=== PATIENT | female | born 1955 | race Caucasian/White ===

== ENCOUNTER 2017-06-25 05:34 | Emergency (ER) | payer OTHER ==
[2017-06-25 06:01] VITALS: TEMP 97; BMI 47.8
--- NOTE | 2017-06-25 06:22 | PDOC ---
*Physical Exam - Vital Signs Last Vital Signs Temp Pulse Resp BP Pulse Ox 97.0 F L 90 20 146/97 98 06/25/17 05:48 06/25/17 05:48 06/25/17 05:48 06/25/17 05:48 06/25/17 05:48 ED Treatment Course - LABORATORY CBC & Chemistry Diagram: 06/25/17 11:31 06/25/17 07:04 *DC/Admit/Observation/Transfer Diagnosis at time of Disposition: Vaginal bleeding, abnormal - Discharge Dispostion Disposition: HOME Condition at time of disposition: Good - Referrals Referrals: Donna Byrne MD [Staff Physician] - Andre Smalls MD [Staff Physician] - - Patient Instructions Printed Discharge Instructions: DI for Vaginal Bleeding During Additional Instructions: Please follow up with referred furnace combustion analyst and primary care physician. Please continue to observe for worsening symptoms, such as abdominal distention , increased vaginal bleeding, change in bowel pattern, fever, chills or weakness. If any the symptoms are noticed please return to the ED immediately - Post Discharge Activity
--- NOTE | 2017-06-25 06:35 | PDOC ---
History of Present Illness - General Chief Complaint: Vaginal Bleeding Stated Complaint: VAGINAL/RECTAL BLEEDING Time Seen by Provider: 06/25/17 06:17 - History of Present Illness Initial Comments: 06/25/17 06:25 CHIEF COMPLAINT: vaginal/rectal bleeding HISTORY OF PRESENT ILLNESS: 61 yo F with hx of seizure disorder (on Keppra) presents to ED with vaginal and rectal bleeding since last night. Patient reports that she had "a little bleeding last night" but when she woke up this morning she felt some cramping and discomfort and saw that she was bleeding much more and passing clots. She states she is certain that she was bleeding from both her rectum and her vagina. She denies any fever, chills, nausea, vomiting, lightheadedness, dizziness, palpitations, or shortness of breaht. Her denies any abdominal pain, "just the little cramping like a period from when I used to have my period." She reports that her last LMP was about 20 years ago. She denies taking any anticoagulants or antiplatelets, "just aspirin sometimes." She denies any prolonged use of NSAIDS. PAST MEDICAL HISTORY: Denies past medical history FAMILY HISTORY: Denies SOCIAL HISTORY: Denies tobacco, alcohol, illicit drug use. SURGICAL HISTORY: Denies ALLERGIES: No known drug allergies REVIEW OF SYSTEMS General/Constitutional: Denies fever or chills. Denies weakness, weight change. HEENT: Denies change in vision. Denies ear pain or discharge. Denies sore throat. Cardiovascular: Denies chest pain or shortness of breath. Respiratory: Denies cough, wheezing, or hemoptysis. Gastrointestinal: Denies nausea, vomiting, diarrhea or constipation. Denies rectal bleeding. Genitourinary: Denies dysuria, frequency, or change in urination. Musculoskeletal: Denies joint or muscle swelling or pain. Denies neck or back pain. Skin and breasts: Denies rash or easy bruising. Neurologic: Denies headache, vertigo, loss of consciousness, or loss of sensation. PHYSICAL EXAM General Appearance: Well-appearing, appropriately dressed. No apparent distress. HEENT: EOMI, PERRLA, normal ENT inspection, normal voice, TMs normal, pharynx normal. No conjunctival pallor. No photophobia, scleral icterus. Neck: Supple. Trachea midline. No tenderness, rigidity, carotid bruit, stridor , lymphadenopathy, or thyromegaly. Respiratory/Chest: Lungs CTAB. No shortness of breath, chest tenderness, respiratory distress, accessory muscle use. No crackles, rales, rhonchi, stridor , wheezing, dullness Cardiovascular: RRR. S1, S2. No JVD, murmur, bradycardia, tachycardia. Vascular Pulses: Dorsalis-Pedis (R): 2+, Dorsalis-Pedis (L): 2+ Gastrointestinal/Abdominal: +blood on rectal exam. Normal bowel sounds. Abdomen soft, non-distended. No tenderness or rebound tenderness. No organomegaly, pulsatile mass, guarding, hernia, hepatomegaly, splenomegaly. Lymphatic: No adenopathy, tenderness. Musculoskeletal/Extremities: Normal inspection. FROM of all extremities, normal capillary refill. Pelvis Stable. No CVA tenderness. No tenderness to extremities, pedal edema, swelling, erythema or deformity. Integumentary: Appropriate color, dry, warm. No cyanosis, erythema, jaundice or rash Neurologic: scallop cutter machine II-XII intact. Fully oriented, alert. Appropriate mood/affect. Motor strength 5/5. No appreciable EOM palsy, facial droop or sensory deficit. Past History - Past Medical History Allergies/Adverse Reactions: Allergies Allergy/AdvReac Type Severity Reaction Status Date / Time No Known Allergies Allergy Verified 06/25/17 05:48 - Suicide/Smoking/Psychosocial Hx Smoking History: Never smoked Have you smoked in the past 12 months: No Information on smoking cessation initiated: No Hx Alcohol Use: No Drug/Substance Use Hx: No *Physical Exam - Vital Signs Last Vital Signs Temp Pulse Resp BP Pulse Ox 97.0 F L 90 20 146/97 98 06/25/17 05:48 06/25/17 05:48 06/25/17 05:48 06/25/17 05:48 06/25/17 05:48 ED Treatment Course - RADIOLOGY Radiology Studies Ordered: Category Date Time Status ABDOMEN & PELVIS CT WITH CONTR [CT] Stat CT Scan 06/25/17 06:25 Ordered TRANSVAGINAL ULTRASOUND US [US] Stat Ultrasound 06/25/17 06:25 Ordered Medical Decision Making - Medical Decision Making 06/25/17 06:35 61 yo F with hx of seizure disorder (on Keppra) presents to ED with vaginal and rectal bleeding since last night. -EKG -CBC, CMP, PT/PTT/INR, T&S -guaiac -TVUS -Abdominal CT guaiac grossly positive. patient with visible vaginal bleeding passing clots Case discussed in detail with oncoming emergency provider including history, physical exam and ancillary studies. In brief, this patient is being seen in the ED for a chief complaint of: vaginal/rectal bleeding I have reviewed the following results: none Pending results: labs Please call the PCP: Plan for disposition as follows: admit Oncoming RAMILA Alex has assumed care for the patient and will complete the evaluation and treatment.
[2017-06-25] MEDS ORDERED: HEMOQUE TEST 1 EACH EACH ONE (07:09)
[2017-06-25 07:32] LABS: BASO % 0.8 % (0-2.0); EOS % 3.7 % (0-4.5); HEMATOCRIT 38.4 % (32.4-45.2); HEMOGLOBIN 12.5 GM/dL (10.7-15.3); LYMPH % 26.2 % (8-40); MCH 28.9 pg (25.7-33.7); MCHC 32.6 g/dl (32.0-36.0); MEAN CELL VOLUME 88.5 fl (80-96); MEAN PLT VOLUME 8.2 fl (7.5-11.1); MONO % 6.8 % (3.8-10.2); NEUT % 62.5 % (42.8-82.8); PLATELET COUNT 298 K/MM3 (134-434); RBC 4.34 M/mm3 (3.60-5.2); RDW 14.1 % (11.6-15.6); WHITE BLOOD COUNT 9.3 K/mm3 (4.0-10.0)
[2017-06-25 07:45] LABS: INR 1.01 (0.82-1.09); PROTHROMBIN TIME (PATIENT) 11.4 SEC (9.98-11.88)
[2017-06-25 07:48] LABS: ACTIVATED PTT 32.4 SECONDS (26.9-34.4)
[2017-06-25 07:52] LABS: ALBUMIN 3.6 g/dl (3.4-5.0); ANION GAP 8 (8-16); BILIRUBIN,TOTAL 0.3 mg/dL (0.2-1.0); BLOOD UREA NITROGEN 11 mg/dL (7-18); CHLORIDE 101 mmol/L (98-107); CO2 28 mmol/L (21-32); CREATININE 0.7 mg/dL (0.55-1.02); GLUCOSE,RANDOM 138 mg/dL (74-106); SGPT/ALT 15 U/L (12-78); SODIUM 137 mmol/L (136-145); TOT PROT 7.4 g/dl (6.4-8.2)
[2017-06-25 07:55] LABS: ALK PHOS 135 U/L (45-117)
--- NOTE | 2017-06-25 08:17 | PDOC ---
*Physical Exam - Vital Signs Last Vital Signs Temp Pulse Resp BP Pulse Ox 97.0 F L 90 20 146/97 98 06/25/17 05:48 06/25/17 05:48 06/25/17 05:48 06/25/17 05:48 06/25/17 05:48 ED Treatment Course - LABORATORY CBC & Chemistry Diagram: 06/25/17 11:31 06/25/17 07:04 - ADDITIONAL ORDERS Additional order review: Laboratory Results 06/25/17 06/25/17 06/25/17 07:04 06:59 06:18 PT with INR 11.40 INR 1.01 PTT (Actin FS) 32.4 Stool Occult Blood Positive Blood Type Cancelled Antibody Screen Cancelled 06/25/17 06:59 RBC 4.34 MCV 88.5 MCHC 32.6 RDW 14.1 MPV 8.2 Neutrophils % 62.5 Lymphocytes % 26.2 Monocytes % 6.8 Eosinophils % 3.7 Basophils % 0.8 Medical Decision Making - Medical Decision Making 06/25/17 08:16 Patient received in sign out from COLBY Berg. Patient with complaints of vaginal bleeding along with rectal bleeding on physical exam. Patient ordered for lab work, CT of the abdomen, and ultrasound of the pelvis. 06/25/17 08:59 Laboratory Tests 06/25/17 06/25/17 06:59 07:04 WBC 9.3 Hgb 12.5 Hct 38.4 Plt Count 298 Neutrophils % 62.5 Sodium 137 Potassium 3.9 Chloride 101 Carbon Dioxide 28 Anion Gap 8 BUN 11 Creatinine 0.7 Random Glucose 138 H Calcium 8.0 L AST 17 ALT 15 Alkaline Phosphatase 135 H Creatine Kinase 87 Troponin I < 0.02 06/25/17 09:00 Pt went to u/s. Pt comfortable presently with family accompanying her 06/25/17 11:05 Ultrasound shows an enlarged elongated uterus with a coarse echotexture. No discrete masses identified. Very poor visualization of the endometrial stripe, as described above without gross thickening. Awaiting CT. Patient ordered for repeat CBC 06/25/17 12:11 Laboratory Tests 06/25/17 06/25/17 06:59 11:31 WBC 10.3 H Hgb 12.5 12.0 Hct 38.4 36.7 MPV 6.3 L D 06/25/17 13:34 CT of the abdomen shows suspected right lower lobe hepatic hemangioma. Follow- up studies recommended. Hypodense endometrial cavity possibly representing blood or thickened endometrium. Clinical correlation a follow-up was recommended. Patient will be given a referral to VOCAL TEACHER, along with a primary care physician and vice squad police officer 06/25/17 13:35 Patient states bleeding has subsided and is only spotting dark red blood when wiping after urination and has no abdominal pain presently. *DC/Admit/Observation/Transfer Diagnosis at time of Disposition: Vaginal bleeding, abnormal - Discharge Dispostion Disposition: HOME Condition at time of disposition: Good - Referrals Referrals: Donna Byrne MD [Staff Physician] - Andre Smalls MD [Staff Physician] - - Patient Instructions Printed Discharge Instructions: DI for Vaginal Bleeding During Additional Instructions: Please follow up with referred game tester and primary care physician. Please continue to observe for worsening symptoms, such as abdominal distention , increased vaginal bleeding, change in bowel pattern, fever, chills or weakness. If any the symptoms are noticed please return to the ED immediately - Post Discharge Activity
[2017-06-25 08:19] LABS: POTASSIUM 3.9 mmol/L (3.5-5.1); SGOT/AST 17 U/L (15-37)
[2017-06-25 11:50] LABS: HEMATOCRIT 36.7 % (32.4-45.2); MCH 28.8 pg (25.7-33.7); MCHC 32.8 g/dl (32.0-36.0); MEAN CELL VOLUME 87.7 fl (80-96); MEAN PLT VOLUME 6.3 fl (7.5-11.1); PLATELET COUNT 286 K/MM3 (134-434); RBC 4.19 M/mm3 (3.60-5.2); RDW 13.6 % (11.6-15.6); WHITE BLOOD COUNT 10.3 K/mm3 (4.0-10.0)
[2017-06-25 16:44] VITALS: BP 140/80; PULSE 86
--- NOTE | 2017-06-29 11:48 | EKG ---
Test Reason : Blood Pressure : / mmHG Vent. Rate : 077 BPM Atrial Rate : 077 BPM P-R Int : 160 ms QRS Dur : 080 ms QT Int : 390 ms P-R-T Axes : 024 035 029 degrees QTc Int : 441 ms NORMAL SINUS RHYTHM LOW VOLTAGE QRS BORDERLINE ECG WHEN COMPARED WITH ECG OF 29-OCT-2004 22:37, NO SIGNIFICANT CHANGE WAS FOUND Confirmed by MD Hernández Daniel ([id number]) on 06/29/2017 11:47:56 AM Referred By: Confirmed By:Lyndon Hernández MD
== END 2017-06-25 14:30 | disposition home or self-care (01) ==
LOC: JER 05:34
DX: N93.9 Abnormal uterine and vaginal bleeding, unspecified (principal); G40.909 Epilepsy, unspecified, not intractable, without status epilepticus
CPT/HCPCS: 36415; 74177-TC; 76830-TC; 80053; 82272; 82550; 84484; 85025; 85027; 85610; 85730; 93005; 93010; 99284-25

== ENCOUNTER 2018-03-13 17:17 | Emergency (ER) | payer OTHER ==
[2018-03-13 17:21] VITALS: BMI 42.8
--- NOTE | 2018-03-13 17:46 | PDOC ---
History of Present Illness - General Chief Complaint: Vaginal Bleeding Stated Complaint: VAGINAL BLEEDING Time Seen by Provider: 03/13/18 17:43 History Source: Patient - History of Present Illness Initial Comments: 03/13/18 17:48 The patient is a 62 year old female with a PMH of seizure disorder (on Carbamezapine and Leviteracam) presents c/o vaginal bleeding. States she went to the bathroom this evening and noticed the blood in her underwear. Denies any associated abdominal pain. Notes a 6 month h/o weight loss. H/o vaginal bleeding intermittently for the past 1 year. Denies any associated chest pain, shortness of breath, abdominal cramping, dysuria. The patient denies fevers/chills, nausea/vomiting, diarrhea/constipation. NKDA Surgical: none reported Social: denies toxic habits PMD: None, previously referred to Dr. Smalls As per EMR, patient last evaluated in 06/2017 for vaginal and rectal bleeding at which time TVUS showed thickened endometrium and R liver hemangioma. Patient states she was unable to f/u with a landscaping and groundskeeping laborer doctor due to cost and insurance issues. Past History - Past Medical History Allergies/Adverse Reactions: Allergies Allergy/AdvReac Type Severity Reaction Status Date / Time No Known Allergies Allergy Verified 03/13/18 17:20 Home Medications: Ambulatory Orders Levetiracetam [Keppra] 06/25/17 COPD: No Seizures: Yes - Suicide/Smoking/Psychosocial Hx Smoking History: Never smoked Have you smoked in the past 12 months: No Hx Alcohol Use: No Drug/Substance Use Hx: No Review of Systems - Review of Systems Constitutional: No: Chills, Fever Respiratory: No: Cough, Shortness of Breath Cardiac (ROS): No: Chest Pain, Lightheadedness, Palpitations, Syncope ABD/GI: No: Constipated, Diarrhea, Nausea, Vomiting *Physical Exam - Vital Signs Last Vital Signs Temp Pulse Resp BP Pulse Ox 98 F 102 H 20 176/78 H 99 03/13/18 17:18 03/13/18 17:18 03/13/18 17:18 03/13/18 17:18 03/13/18 17:18 - Physical Exam General Appearance: Yes: Nourished, Obese HEENT: positive: Normal Voice, Hearing Grossly Normal Neck: positive: Trachea midline, Supple Respiratory/Chest: positive: Lungs Clear, Normal Breath Sounds Cardiovascular: positive: S1, S2. negative: JVD, Murmur Female Pelvic Exam: positive: cervical os closed, vaginal bleeding, other (no CMT, no adnexal tenderness) Gastrointestinal/Abdominal: positive: Normal Bowel Sounds, Soft Extremity: positive: Normal Capillary Refill, Normal Inspection Integumentary: positive: Normal Color, Dry, Warm ED Treatment Course - LABORATORY CBC & Chemistry Diagram: 03/13/18 18:05 03/13/18 18:05 Medical Decision Making - Medical Decision Making 03/13/18 18:28 62 year old female with vaginal bleeding. H/o 40 lb weight loss over the last 2 months. Hypertensive (176/82) and tachycardic (102) at presentation. Pelvic exam shows vaginal bleed with tissue growth @ 7 o'clock position. Frontal diagnosis: ovarian CA, uterine CA, fibroids. Will obtain basic labs, T&S, TVUS. Reassess. 03/13/18 19:09 Leukocytosis 13.9 03/13/18 19:30 CMP unremarkable. Patient @ TVUS 03/13/18 21:22 FOBT negative 03/13/18 22:21 Tachycardia, HTN resolved TVUS shows fibroids - likely source of patient bleeding. As patient is hemodynamically stable, will discharge with referral to OB-Lighting Engineer and primary care. Strong counseling on the importance of follow-up to r/o malignancy in addition to possible treatment for fibroids. I discussed the physical exam findings, ancillary test results and final diagnoses with the patient. I answered all of the patient's questions. The patient was satisfied with the care received and felt comfortable with the discharge plan and treatment plan. The patient will return to the Emergency Department with any new, persistent or worsening symptoms. *DC/Admit/Observation/Transfer Diagnosis at time of Disposition: Fibroids, Vaginal bleeding - Discharge Dispostion Disposition: HOME Condition at time of disposition: Good Decision to Admit order: No - Referrals Referrals: Gracy Marina DO [Staff Physician] - Zahraa Kline MD [Staff Physician] - Lili Winter MD [Staff Physician] - Charlie Butler MD [Staff Physician] - Rhiannon Morgan MD [Staff Physician] - - Patient Instructions Additional Instructions: You were evaluated today for your vaginal bleeding. An ultrasound of your uterus shows fibroids- these are possibly the source of your bleeding. At this time you are safe for discharge home. Please see a corporate traffic manager (we have provided 3 referrals for you to choose a corporate traffic manager of your choice). We have given you a copy of your ultrasound, please take this to your appointment. Your care is not complete until you follow-up with a corporate traffic manager. We have also provided a referral to a primary care doctor, Dr. Luke Guerra or Dr. Morgan. Please make an appointment to establish primary care. Return to the Emergency Department for any new/worsening/concerning symptoms. - Post Discharge Activity
[2018-03-13 18:17] LABS: BASO % 0.3 % (0-2.0); EOS % 2.3 % (0-4.5); HEMATOCRIT 34.9 % (32.4-45.2); HEMOGLOBIN 11.3 GM/dL (10.7-15.3); LYMPH % 14.6 % (8-40); MCH 27.5 pg (25.7-33.7); MCHC 32.5 g/dl (32.0-36.0); MEAN CELL VOLUME 84.8 fl (80-96); MEAN PLT VOLUME 6.9 fl (7.5-11.1); MONO % 5.4 % (3.8-10.2); NEUT % 77.4 % (42.8-82.8); PLATELET COUNT 467 K/MM3 (134-434); RBC 4.12 M/mm3 (3.60-5.2); RDW 15.7 % (11.6-15.6); WHITE BLOOD COUNT 13.9 K/mm3 (4.0-10.0)
--- NOTE | 2018-03-13 18:21 | PDOC ---
Attending Attestation - Resident Resident Name: QiuanaNelly - ED Attending Attestation I have performed the following: I have examined & evaluated the patient, The case was reviewed & discussed with the resident, I agree w/resident's findings & plan - HPI HPI: 03/13/18 18:22 62 YOF with sz history, presenting with intermittent VB x 1 year. also endorses weight loss, decreased appetite x several months. no AP. Denies any associated chest pain, shortness of breath, abdominal cramping, n/v/d, dysuria. As per EMR, patient last evaluated in 06/2017 for vaginal and rectal bleeding at which time TVUS showed thickened endometrium and R liver hemangioma. Patient states she was unable to f/u with a GI doctor due to cost and insurance issues. 03/13/18 22:03 - Physicial Exam PE: 03/13/18 22:03 NAD, well appearing, PERRL, EOMI, MMM, nl conjunctiva, anicteric; neck supple. lungs clear, RRR, abdomen soft nontender. Obese abdomen. Pelvic exam performed by resident. [place] x4, no focal neuro deficits. No peripheral edema. normal color for ethnicity, WW. - Medical Decision Making 03/13/18 18:21 62 year old female with a PMH of seizure disorder (on Carbamezapine and Leviteracam) presents c/o vaginal bleeding. vitals with mild hypertension and tachy. rechecked and normal. Prior notes reviewed, including admissions, discharges and consultations. laboratory results and imaging reviewed, basic labs and lytes wnl, notable for nonspecific leukocytosis. defer UA, no infection. guaiac neg, not GIB. ED course: no acute events, remained stable and well appearing. TVUS: fibroid uterus, nonvisualized endometrial stripe urged close f/u java development manager for DUB/fibroids and malignancy workup. PCP referrals given. no other sx/AP or systemic findings to warrant further imaging/testing at this time, with followup provided.. Dispo: Pt to be discharged in stable condition. Patient and family made aware of impression and plan, return precautions discussed (including but not limited to worsening pain or symptoms), fevers, or signs of infection, chest pain, respiratory distress, inability to tolerate oral intake, dehydration, syncope, or neurologic changes). Follow up with PMD and/or specialist as recommended, follow up information provided, take medications as instructed for duration of time. continue with supportive care, avoid triggers and precipitants. All questions answered to patient's satisfaction and expressed understanding and comfort with this. 03/13/18 22:03 03/13/18 22:03 03/13/18 22:04
[2018-03-13 18:41] LABS: ALBUMIN 3.7 g/dl (3.4-5.0); ALK PHOS 127 U/L (45-117); ANION GAP 11 MMOL/L (8-16); BILIRUBIN,TOTAL 0.3 mg/dL (0.2-1); BLOOD UREA NITROGEN 9 mg/dL (7-18); CALCIUM 8.8 mg/dL (8.5-10.1); CHLORIDE 98 mmol/L (98-107); CO2 27 mmol/L (21-32); CREATININE 0.6 mg/dL (0.55-1.3); GLUCOSE,RANDOM 114 mg/dL (74-106); POTASSIUM 4.2 mmol/L (3.5-5.1); SGOT/AST 21 U/L (15-37); SGPT/ALT 17 U/L (13-61); SODIUM 136 mmol/L (136-145); TOT PROT 7.9 g/dl (6.4-8.2)
[2018-03-13 22:12] VITALS: BP 134/84; PULSE 84; TEMP 98.2
== END 2018-03-13 22:27 | disposition home or self-care (01) ==
LOC: JER 17:17
DX: D25.9 Leiomyoma of uterus, unspecified (principal); G40.909 Epilepsy, unspecified, not intractable, without status epilepticus
CPT/HCPCS: 36415; 76830-TC; 80053; 82272; 85025; 86850; 86900; 86901; 99282-25

== ENCOUNTER 2018-07-25 18:46 | Inpatient (IN) | payer OTHER ==
[2018-07-25 19:14] VITALS: BMI 38.9
--- NOTE | 2018-07-25 20:02 | PDOC ---
History of Present Illness - General Chief Complaint: Blood Pressure Problem Stated Complaint: DEHYDRATION Time Seen by Provider: 07/25/18 20:02 History Source: Patient Exam Limitations: No Limitations - History of Present Illness Initial Comments: 63 yo F w a seizure disorder on carbamazepine and levitiracetam presents to the ER with multiple weeks of abdominal pain which acutely worsened yesterday and have been constant in the lower abdominal quadrants of her abdomen. The right lower quadrant is more painful than the left. She states she is severely constipated and has unintentionally lost 60 IB's over the past few months. She says she is not able to eat, cannot tolerate food well, and has felt overall weak. She says she has not had a bowel movement in the past week and has not passed flatus at any point in the last week as well. She endorses mild nausea but no emesis. She denies having experienced any chest pain, SOB, or difficulty breathing. Denies urgency, dysuria, or frequency. PCP: Abby Pastor PSH: None reported. Allergies: Dairy products, NKDA Social Hx: Denies smoking, drinking, or other substance usage Past History - Past Medical History Allergies/Adverse Reactions: Allergies Allergy/AdvReac Type Severity Reaction Status Date / Time No Known Allergies Allergy Verified 07/25/18 19:03 Home Medications: Ambulatory Orders Carbamazepine 200 mg PO QID 07/25/18 levETIRAcetam [Keppra -] 750 mg PO BID 07/25/18 COPD: No Seizures: Yes - Suicide/Smoking/Psychosocial Hx Smoking History: Never smoked Have you smoked in the past 12 months: No Hx Alcohol Use: No Drug/Substance Use Hx: No Review of Systems - Review of Systems Able to Perform ROS?: Yes Comments:: CONSTITUTIONAL: Present: Chills, fatigue Absent: fever EYES: Absent: visual changes ENT: Absent: ear pain, no sore throat CARDIOVASCULAR: Absent: chest pain, no palpitations RESPIRATORY: Absent: cough, no SOB GI: Present: Abdominal pain, nausea, constipation Absent: no vomiting, no diarrhea GENITOURINARY: Absent: dysuria, no frequency, no hematuria MUSKULOSKELETAL: Absent: back pain, no arthralgia, no myalgia SKIN: Absent: rash NEURO: Absent: headache *Physical Exam - Vital Signs Last Vital Signs Temp Pulse Resp BP Pulse Ox 97.7 F 84 20 113/52 L 98 07/25/18 19:08 07/25/18 19:08 07/25/18 19:08 07/25/18 19:08 07/25/18 19:08 - Physical Exam Comments: GENERAL: Morbidly obese. Patient appears to be in mild distress. HEENT: Normocephalic, atraumatic. PERRL, EOM intact. CARDIOVASCULAR: Normal S1, S2. Regular rate and rhythm. PULMONARY: No evidence of respiratory distress. Lungs clear to auscultation bilaterally. No wheezing, rales or rhonchi. ABDOMEN: There is significant TTP in lower abdominal regions R>L. Abdomen is still soft without guarding or rebound. EXTREMITIES: Normal ROM in all four extremities. No gross deformities. SKIN: Warm, dry. No rash NEUROLOGICAL: No focal neurological deficits. Female Pelvic Exam: positive: Bartholin mass, vaginal bleeding, other (Blood clot in vaginal vault). negative: normal external exam ED Treatment Course - LABORATORY CBC & Chemistry Diagram: 07/25/18 20:25 07/25/18 20:30 Medical Decision Making - Medical Decision Making 63 yo F w a seizure disorder on carbamazepine and levitiracetam presents to the ER with multiple weeks of abdominal pain which acutely worsened yesterday and have been constant in the lower abdominal quadrants of her abdomen. The right lower quadrant is more painful than the left. She states she is severely constipated and has unintentionally lost 60 IB's over the past few months. She says she is not able to eat, cannot tolerate food well, and has felt overall weak. She says she has not had a bowel movement in the past week and has not passed flatus at any point in the last week as well. She endorses mild nausea but no emesis. VS: WNL DDx IBNLT: SBO, diverticulitis, cholecystitis, appendicitis, malignancy, gynecologic issue, UTI/Pylo, renal colic/ Plan: Labs, Urine, CTAP, IV hydration, re-assess. CBC,CMP WBC 18.6 K/mm3 (4.0-10.0) H 07/25/18 20:25 RBC 3.56 M/mm3 (3.60-5.2) L 07/25/18 20:25 Hgb 8.6 GM/dL (10.7-15.3) L 07/25/18 20:25 Hct 26.9 % (32.4-45.2) L D 07/25/18 20:25 MCV 75.6 fl (80-96) L 07/25/18 20:25 MCH 24.1 pg (25.7-33.7) L D 07/25/18 20:25 MCHC 31.9 g/dl (32.0-36.0) L 07/25/18 20:25 RDW 18.7 % (11.6-15.6) H 07/25/18 20:25 Plt Count 522 K/MM3 (134-434) H 07/25/18 20:25 MPV 7.3 fl (7.5-11.1) L 07/25/18 20:25 Absolute Neuts (auto) 16.9 K/mm3 (1.5-8.0) H 07/25/18 20:25 Neutrophils % 91.0 % (42.8-82.8) H 07/25/18 20:25 Lymphocytes % 5.2 % (8-40) L D 07/25/18 20:25 Monocytes % 3.4 % (3.8-10.2) L 07/25/18 20:25 Eosinophils % 0.2 % (0-4.5) D 07/25/18 20: Basophils % 0.2 % (0-2.0) 07/25/18 20:25 Nucleated RBC % 0 % (0-0) 07/25/18 20:25 Sodium 133 mmol/L (136-145) L 07/25/18 20:30 Potassium 3.3 mmol/L (3.5-5.1) L 07/25/18 20:30 Chloride 100 mmol/L (98-107) 07/25/18 20:30 Carbon Dioxide 22 mmol/L (21-32) 07/25/18 20:30 Anion Gap 12 MMOL/L (8-16) 07/25/18 20:30 BUN 48 mg/dL (7-18) H 07/25/18 20:30 Creatinine 2.3 mg/dL (0.55-1.3) H 07/25/18 20:30 Creat Clearance w eGFR 21.49 (>60) 07/25/18 20:30 Random Glucose 166 mg/dL (74-106) H 07/25/18 20:30 Lactic Acid 1.2 mmol/L (0.4-2.0) 07/25/18 20:25 Calcium 8.5 mg/dL (8.5-10.1) 07/25/18 20:30 Total Bilirubin 1.3 mg/dL (0.2-1) H 07/25/18 20:30 AST 22 U/L (15-37) 07/25/18 20:30 ALT 17 U/L (13-61) 07/25/18 20:30 Alkaline Phosphatase 163 U/L (45-117) H 07/25/18 20:30 Total Protein 6.9 g/dl (6.4-8.2) 07/25/18 20:30 Albumin 2.5 g/dl (3.4-5.0) L 07/25/18 20: Lipase 46 U/L (73-393) L 07/25/18 20:30 CTAP: There is a large cystic mass possibly arising from the uterus or right adnexal region and extending to the level of the kidneys measuring 16x11.6 axially and 17 cm in the craniocaudal dimension. This could be a cystic malignancy or possibly a large degenerating leiomyoma. there are also enlarged retroperitoneal and right pelvic side wall lymph nodes measuring up to 2.7 cm in short axis. Will admit patient for further care and to r/o malignancy *DC/Admit/Observation/Transfer Diagnosis at time of Disposition: Abdominal mass, Hypokalemia, Anemia - Discharge Dispostion Condition at time of disposition: Stable Decision to Admit order: Yes - Referrals - Patient Instructions - Post Discharge Activity
--- NOTE | 2018-07-25 20:07 | PDOC ---
Attending Attestation - HPI HPI: 07/25/18 21:08 63 YOF with a PMH of seizure disorder on carbamazepine and levitiracetam who presents to the ER with abdominal pain for the past couple of weeks. Patient states the abdominal pain is localized in the lower abdomen, worse on the right. Denies alleviating or exacerbating factors. Patient has been unable to tolerate PO intake. She also reports she has been constipated for the past week. The patient denies chest pain, shortness of breath, headache and dizziness. Admits to nausea but denies fever, chills, vomit, diarrhea. Denies dysuria, frequency, urgency and hematuria. Allergies: NKDA PSH: None reported. Social Hx: Denies alcohol, drug or cigarette use. PCP: Abby Pastor - Physicial Exam PE: 07/25/18 21:08 Agrees with resident's exam. <Sherri Villa - Last Filed: 07/25/18 21:08> - Resident Resident Name: Fred Mendoza - ED Attending Attestation I have performed the following: I have examined & evaluated the patient, The case was reviewed & discussed with the resident, I agree w/resident's findings & plan - Medical Decision Making 07/26/18 00:27 63-year-old female with weight loss, urinary retention and abdominal pain/ constipation CT scan of the abdomen and pelvis shows a probable pelvic/adnexal mass with increased lymphadenopathy concerning for possible malignancy versus leiomyoma Patient does have an elevated creatinine, she required Winston catheter to urinate secondary to pain, this has since been removed She will be admitted to medical service for further evaluation <Clarita Encarnacion - Last Filed: 07/26/18 00:51>
[2018-07-25] MEDS ORDERED: SODIUM CHLORIDE 1,000 ML IV STA (20:16)
[2018-07-25] MEDS ORDERED: FAMOTIDINE 20 MG/50 ML IVPB 20 MG/50 ML MG IVPB ONE ×2 (20:16→20:37)
[2018-07-25] MEDS ORDERED: MAG HYDROX/AL HYDROX/SIMETH -MYLANTA- ORAL SUSPENSION PO ONE (20:18)
[2018-07-25] MEDS ORDERED: MAG HYDROX/AL HYDROX/SIMETH 30 ML UNIT-DOSE CUP ONE (20:37)
[2018-07-25 21:27] LABS: BASO % 0.2 % (0-2.0); EOS % 0.2 % (0-4.5); HEMATOCRIT 26.9 % (32.4-45.2); HEMOGLOBIN 8.6 GM/dL (10.7-15.3); LYMPH % 5.2 % (8-40); MCH 24.1 pg (25.7-33.7); MCHC 31.9 g/dl (32.0-36.0); MEAN CELL VOLUME 75.6 fl (80-96); MEAN PLT VOLUME 7.3 fl (7.5-11.1); MONO % 3.4 % (3.8-10.2); PLATELET COUNT 522 K/MM3 (134-434); RBC 3.56 M/mm3 (3.60-5.2); RDW 18.7 % (11.6-15.6); WHITE BLOOD COUNT 18.6 K/mm3 (4.0-10.0)
[2018-07-25 21:28] LABS: ALBUMIN 2.5 g/dl (3.4-5.0); ALK PHOS 163 U/L (45-117); ANION GAP 12 MMOL/L (8-16); BILIRUBIN,TOTAL 1.3 mg/dL (0.2-1); BLOOD UREA NITROGEN 48 mg/dL (7-18); CALCIUM 8.5 mg/dL (8.5-10.1); CHLORIDE 100 mmol/L (98-107); CO2 22 mmol/L (21-32); CREATININE 2.3 mg/dL (0.55-1.3); GLUCOSE,RANDOM 166 mg/dL (74-106); LIPASE 46 U/L (73-393); POTASSIUM 3.3 mmol/L (3.5-5.1); SGOT/AST 22 U/L (15-37); SGPT/ALT 17 U/L (13-61); SODIUM 133 mmol/L (136-145); TOT PROT 6.9 g/dl (6.4-8.2)
[2018-07-25] MEDS ORDERED: ACETAMINOPHEN 1000 MG/100 ML VIAL (NON FORMULARY) IVPB ONE (21:31)
[2018-07-25] MEDS ORDERED: ACETAMINOPHEN INJECTION 100 ML IVPB ONE (21:32)
[2018-07-25 22:02] LABS: EPI CELLS 18.8 /HPF (0-5); HYALINE CASTS 99 /hpf (0-8); URINE APPEARANCE CLOUDY; URINE BACTERIA 4.05 /hpf (NEGATIVE); URINE BILIRUBIN 1+ (NEGATIVE); URINE COLOR DK YELLOW; URINE GLUCOSE (UA) NEGATIVE (NEGATIVE); URINE KETONE TRACE (NEGATIVE); URINE LEUK ESTERASE TRACE (NEGATIVE); URINE NITRITE NEGATIVE (NEGATIVE); URINE PROTEIN 2+ (NEGATIVE); URINE RBC 3 /hpf (0-4); URINE UROBILINOGEN 4.0 E.U/dl mg/dL (0.2-1.0); URINE WBC 13 /hpf (0-5)
[2018-07-25] MEDS ORDERED: morphine CARPU-JECT 4 MG/1 ML DISP.SYRIN IVPUSH ONE (23:34)
[2018-07-25] MEDS ORDERED: morphine SULFATE 4 MG/ML VIAL ONE (23:58)
--- NOTE | 2018-07-26 02:13 | HP ---
<Froilan Josue - Last Filed: 07/27/18 19:12> CHIEF COMPLAINT: Abdominal Pain PCP: Dr. Abby Ramon HISTORY OF PRESENT ILLNESS: Pt. is a 63 y.o. F presenting with abdominal pain for the last few weeks. Pt. states that it has gotten worse over the last day. Pt. states that the pain is 10/10 in severity with the RLQ> LLQ. Pt. states that she has had decreased PO intake for weeks such that she has had 60lb weight loss in the last 4 months. Pt. endorses difficulty swallowing solids and constipation for the last week. Pt. endorses vaginal bleeding that happened for 2 days within the last few weeks that resolved on its own. Pt states she has never had menopause. Pt. denies flatus in the last week. Pt. denies fevers, chills, chest pain shortness of breath at rest or ER course was notable for: (1)CT A/P, labs, EKG (2) Trop (3) Recent Travel: No PAST MEDICAL HISTORY: Seizure Disorder, Vaginal bleeding PAST SURGICAL HISTORY: Denies Social History: Smoking: denies Alcohol: denies Drugs: denies Family History: Brother and Aunt both of lung cancer Allergies No Known Allergies Allergy (Verified 07/25/18 19:03) HOME MEDICATIONS: Home Medications Medication Instructions Recorded Carbamazepine 200 mg PO QID 07/25/18 levETIRAcetam [Keppra -] 750 mg PO BID 07/25/18 REVIEW OF SYSTEMS CONSTITUTIONAL: generalized weakness, malaise, loss of appetite, weight change Absent: fever, chills, diaphoresis, HEENT: Absent: rhinorrhea, nasal congestion, throat pain, throat swelling, difficulty swallowing, mouth swelling, ear pain, eye pain, visual changes CARDIOVASCULAR: Absent: chest pain, syncope, palpitations, irregular heart rate, lightheadedness , peripheral edema RESPIRATORY: Absent: cough, shortness of breath, dyspnea with exertion, orthopnea, wheezing, stridor, hemoptysis GASTROINTESTINAL: abdominal pain, constipation Absent: abdominal distension, nausea, vomiting, diarrhea, melena, hematochezia GENITOURINARY: Absent: dysuria, frequency, urgency, hesitancy, hematuria, flank pain, genital pain MUSCULOSKELETAL: Absent: myalgia, arthralgia, joint swelling, back pain, neck pain SKIN: Absent: rash, itching, pallor HEMATOLOGIC/IMMUNOLOGIC: Absent: easy bleeding, easy bruising, lymphadenopathy, frequent infections ENDOCRINE: unexplained weight loss Absent: unexplained weight gain, , heat intolerance, cold intolerance NEUROLOGIC: Absent: headache, focal weakness or paresthesias, dizziness, unsteady gait, seizure, mental status changes, bladder or bowel incontinence PSYCHIATRIC: Absent: anxiety, depression, suicidal or homicidal ideation, hallucinations. PHYSICAL EXAMINATION Vital Signs - 24 hr 07/25/18 19:08 Temperature 97.7 F Pulse Rate 84 Respiratory 20 Rate Blood Pressure 113/52 L O2 Sat by Pulse 98 Oximetry (%) GENERAL: Awake, alert, and fully oriented, in mild distress d/t pain. HEAD: Normal with no signs of trauma. EYES: Pupils equal, round and reactive to light, extraocular movements intact, sclera anicteric, conjunctiva clear. EARS, NOSE, THROAT: Ears normal, nares patent, oropharynx clear without exudates. Dry mucous membranes. NECK: Normal range of motion, supple without lymphadenopathy, JVD, or masses. LUNGS: Breath sounds equal, clear to auscultation bilaterally. No wheezes, and no crackles. No accessory muscle use. HEART: Regular rate and rhythm, S1 with murmur and S2 ABDOMEN: Soft, RLQ tenderness to palpation, dull to percussion, normoactive bowel sounds, guarding, no rebound. Pt. refused rectal exam and pelvic exam UPPER EXTREMITIES: 2+ radial pulses, warm, well-perfused. No cyanosis. No peripheral edema. LOWER EXTREMITIES: warm, well-perfused, no calf tenderness. No peripheral edema. NEUROLOGICAL: Alert and Oriented x 3 PSYCHIATRIC: Cooperative. Good eye contact. Poor Insight. SKIN: Warm, dry, pale, normal turgor Laboratory Results - last 24 hr 07/25/18 07/25/18 07/25/18 20:25 20:25 20:25 WBC 18.6 H RBC 3.56 L Hgb 8.6 L Hct 26.9 L D MCV 75.6 L MCH 24.1 L D MCHC 31.9 L RDW 18.7 H Plt Count 522 H MPV 7.3 L Absolute Neuts (auto) 16.9 H Neutrophils % 91.0 H Lymphocytes % 5.2 L D Monocytes % 3.4 L Eosinophils % 0.2 D Basophils % 0.2 Nucleated RBC % 0 Sodium Potassium Chloride Carbon Dioxide Anion Gap BUN Creatinine Creat Clearance w eGFR Random Glucose Lactic Acid 1.2 Calcium Total Bilirubin AST ALT Alkaline Phosphatase Total Protein Albumin Lipase Urine Color Urine Appearance Urine pH Ur Specific [place] Urine Protein Urine Glucose (UA) Urine Ketones Urine Blood Urine Nitrite Urine Bilirubin Urine Urobilinogen Ur Leukocyte Esterase Urine WBC (Auto) Urine RBC (Auto) Urine Casts (Auto) U Pathogenic Cast Auto U Epithel Cells (Auto) U Sm Round Cell (Auto) Urine Bacteria (Auto) Carbamazepine 8.5 07/25/18 07/25/18 20:30 21:50 WBC RBC Hgb Hct MCV MCH MCHC RDW Plt Count MPV Absolute Neuts (auto) Neutrophils % Lymphocytes % Monocytes % Eosinophils % Basophils % Nucleated RBC % Sodium 133 L Potassium 3.3 L Chloride 100 Carbon Dioxide 22 Anion Gap 12 BUN 48 H Creatinine 2.3 H Creat Clearance w eGFR 21.49 Random Glucose 166 H Lactic Acid Calcium 8.5 Total Bilirubin 1.3 H AST 22 ALT 17 Alkaline Phosphatase 163 H Total Protein 6.9 Albumin 2.5 L Lipase 46 L Urine Color Dk yellow Urine Appearance Cloudy Urine pH 5.0 Ur Specific [place] 1.016 Urine Protein 2+ H Urine Glucose (UA) Negative Urine Ketones Trace H Urine Blood Negative Urine Nitrite Negative Urine Bilirubin 1+ H Urine Urobilinogen 4.0 e.u/dl H Ur Leukocyte Esterase Trace Urine WBC (Auto) 13 Urine RBC (Auto) 3 Urine Casts (Auto) 99 U Pathogenic Cast Auto None seen U Epithel Cells (Auto) 18.8 U Sm Round Cell (Auto) None seen Urine Bacteria (Auto) 4.05 Carbamazepine ASSESSMENT/PLAN: Pt. is a 63 y.o. F w/ Seizure Disorder of Vaginal bleeding presenting with abdominal pain for the last few weeks. #Abdominal Pain 2/2 Pelvic mass likely uterine in origin f/u Oncology consult (Dr. Terry) f/u Gynecology consult (Dr. Maria) f/u CA-125, CA 19-9 Hx. of intermittent vaginal bleeding CT A/P appreciated: large mass in uterus vs. bladder 16.6 vs. 11.6 vs.17 w/ lymph node enlargement Abd. US appreciated #CINTHYA 2/2 dehydration vs UTI f/u urine studies started IVF given Ceftriaxone empirically f/u UCx. Cr. 2.3, last was 0.6 in March Leukocytosis 2/2 malignancy given elevated ALP? #Anemia trend H/H Hgb: 8.6 Hx. of vaginal bleeding f/u Iron studies, reticulocyte count #Constipation likely from mass effect and decreased PO intake CT negative for obstructions f/u GI consult (Dr. Simmons) #Liver Mass likely hemangioma vs. Metastases Abd. US appreciated: Liver mass, likely hemangioma, large non-obstructing GB, dilated CBD (14mm) f/u GI recommendations- was supposed to f/u with Dr. Simmons after last hospitalization, was unable to at the time. GGT and ALP elevated T-Bili: 1.3 #Unintentional weight loss 2/2 Dysphagia and Decreased appetite likely 2/2 Malignancy Speech and swallow consult Bedside swallow evaluation f/u prealbumin low albumin #Seizure disorder f/u Carbamazepine level and Keppra level c/w IV Keppra consider restarting Carbamazepine however in setting of CINTHYA decision was made to hold, f/u Pharmacy recommendations consult to Neurology (Dr. Miller) appreciated #CINTHYA f/u urine studies strict Is and Os #FEN IVF, bedside swallow evaluation monitor electrolyrtes and replete as needed, watch low K+ NPO-will likely need barium swallow #DVT Ppx. Hep SQ Visit type - Emergency Visit Emergency Visit: Yes ED Registration Date: 07/25/18 Care time: The patient presented to the Emergency Department on the above date and was hospitalized for further evaluation of their emergent condition. - New Patient This patient is new to me today: Yes Date on this admission: 07/25/18 - Critical Care Critical Care patient: No <Zurdo Davis - Last Filed: 08/22/18 22:06> Seen and examined; agree with above aside from what is supplemented in my own documentation. Repeated all villalpando parts of exam, supervised all vital parts of patient care.
--- NOTE | 2018-07-26 02:19 | PN ---
Teaching Attending Note Name of Resident: Melvin Parrish ATTENDING PHYSICIAN STATEMENT I saw and evaluated the patient. I reviewed the resident's note and discussed the case with the resident. I agree with the resident's findings and plan as documented. SUBJECTIVE: Seen and examined; please refer to resident note for further historical information. Briefly, this is a 63 y/o female presenting to the ER with a CC of abdominal pain that has been progressive over the past several months not made better or worse with anything; she tells me that it is associated with severe constipation, anorexia, and overall poor functional status. She had a seizure several days ago due to not taking her PO seizure medications (keppra and carbemazepine) and did take tonights but has been off for several days. No seizure activity observed here. CT abdomen done and shows a large cystic mass from the uterus or the R-adenexal region entering to the level of kidneys [id number] that is likely cystic malignancy vs. large degenerating leiomyoma. She does have enlarged RP and R-pelvic LNs measuring up to 2.7cm in dimension. She was observed by ER to have blood in the vaginal vault and has had ~4 weeks ago on and off and denies any true menopause (she says she goes to [facility] [address] but cannot remember the name); would be post-menopausal. Furthermore she complains of oral dysphagia with solids, not liquids. 10 sys ROS done and negative aside from HPI PMH, PSH, Family hx, Social hx reviewed Medications reviewed; pending reconciliation Home Medications Medication Instructions Recorded Carbamazepine 200 mg PO QID 07/25/18 levETIRAcetam [Keppra -] 750 mg PO BID 07/25/18 OBJECTIVE: VS, labs, imaging reviewed Mild distress, AAOx3, Resting in bed NC AT EOMI PERRLA RRR s1/2 no mgr Tender to palpation, distended, Reduced bowel sounds Lungs CTAB, w/ sym exp CN2-12 wnl, no fnd Normal mood, appropriate behavior ASSESSMENT AND PLAN: Patient presents with abdominal pain; found to have a large mass arising from uterus vs. ovary; also noted to have potential UTI, CINTHYA, hyponatremia, elevated Alk Phos with dilated GB. She hasn't been taking her antiepileptics and had a seizure at home. 1) Pelvic Mass with Lymphadenopathy and vaginal bleeding -From 2018 known hx thickened endometrium; appears lost to followup from that time. -Ddx suspect for cystic malignancy vs. large degenerating leiomyoma; R-sided and RP LNs noted. -Checking tumor markers, consulting oncology and OBGYN. Will likely require procedure. -Pain control, nausea control. She is aware there is a mass. 2) Seizure -Placing on home Keppra and Carbemazepine IV and monitoring with neuro checks and seizure precautions. Checking levels and reload if needed. 3) CINTHYA -Likely prerenal given history but will check FeNa to confirm. Monitoring strict Is and Os and QD BMP; empirically hydrating overnight with LR. 4) Known hepatic hemangioma with elevated Alk Phos/Bili with Distended GB -Hemangioma noted on last year's ER note; today seen to have cystic mass R- hepatic lobe on prelim US. -Checking GGT, RUQ US prelim report reviewed. Trend CMP. -As per EMR, patient last evaluated in 06/2017 for vaginal and rectal bleeding at which time TVUS showed thickened endometrium and R liver hemangioma. Patient states she was unable to f/u with a GI doctor due to cost and insurance issues. Consulting Dr. Rodas. CBD 14mm on prelim US. 5) Leukocytosis with ?UTI -Empirically covering with ceftriaxone; followup cultures 6) Thrombocytosis -Trend CBC; likely reactive to underlying process with some dehydration contributory 7) Hyponatremia -Checking osms; monitor sodium. Hypovolemic hypotonic most likely 8) Hypoalbuminemia -Check prealbumin; consider #1 with ddx. 9) Hyperglycemia -Check A1c 10) HypoK -On LR; check in AM and replete PRN 11) Microcytic Anemia -Obtaining iron studies, B12/Folate, reticulocyte count. Consider peripheral smear. 12) Constipation -Could be due to #1 mass effect 13) Dysphagia -NPO; with solids. No issues with liquids. Will make NPO and consult swallow FENA -LR@100 -PRN replete -NPO -As tolerated Full Code
[2018-07-26] MEDS ORDERED: LACTATED RINGERS SOLUTION 1,000 ML/1,000 ML INFUS.BAG IV SCH (02:30)
[2018-07-26] MEDS ORDERED: SODIUM CHLORIDE 1,000 ML IV SCH (02:45)
[2018-07-26] MEDS: SODIUM CHLORIDE 1,000 ML IV SCH (02:48)
--- NOTE | 2018-07-26 08:19 | CONSULT ---
Consultation: HEMATOLOGY/ONCOLOGY CONSULTATION REQUESTING PROVIDER: Dr. Celestin CONSULT REQUEST: We have been asked to medically evaluate this patient for pelvic mass HISTORY OF PRESENT ILLNESS: 63 year old female with a history of seizures and 1 year of vaginal bleeding presented to the hospital for right lower quadrant abdominal pain 10/10 in severity, nonradiating for several weeks, acutely worse over the past 1 day. She reports that constipated for several days. Reports 60 pound weight loss over the last 4 months. Additionally she reports and several occasions of vaginal bleeding over the past several weeks. States that for the last 2 months , she has had the inability to swallow solids, feeling like she has to spit up or vomit anything solid that she eats. She reports only being able to swallow liquids without issue. She has cut her diet over the last 2 months to only being able to swallow liquids and shakes. Never happened to her before. Denies fevers, chills, nausea, vomiting, chest pain or shortness of breath. No reported family history of uterine, breast or ovarian cancer. States her brother 4 months ago from cancer that she does not know the type. Non-smoker Non-drinker [id number] REVIEW OF SYSTEMS: CONSTITUTIONAL: weight change Absent: fever, chills, diaphoresis, generalized weakness, malaise, loss of appetite, HEENT: Absent: rhinorrhea, nasal congestion, throat pain, throat swelling, difficulty swallowing, mouth swelling, ear pain, eye pain, visual changes CARDIOVASCULAR: Absent: chest pain, syncope, palpitations, irregular heart rate, lightheadedness , peripheral edema RESPIRATORY: Absent: cough, shortness of breath, dyspnea with exertion, orthopnea, wheezing, stridor, hemoptysis GASTROINTESTINAL:abdominal pain, dysphagia Absent: , abdominal distension, nausea, vomiting, diarrhea, constipation, melena , hematochezia GENITOURINARY: Absent: dysuria, frequency, urgency, hesitancy, hematuria, flank pain, genital pain MUSCULOSKELETAL: Absent: myalgia, arthralgia, joint swelling, back pain, neck pain SKIN: Absent: rash, itching, pallor HEMATOLOGIC/IMMUNOLOGIC: Absent: easy bleeding, easy bruising, lymphadenopathy, frequent infections ENDOCRINE:unexplained weight loss Absent: unexplained weight gain, , heat intolerance, cold intolerance NEUROLOGIC: Absent: headache, focal weakness or paresthesias, dizziness, unsteady gait, seizure, mental status changes, bladder or bowel incontinence PSYCHIATRIC: Absent: anxiety, depression, suicidal or homicidal ideation, hallucinations. PHYSICAL EXAMINATION Vital Signs - 24 hr 07/25/18 07/26/18 07/26/18 19:08 06:36 07:08 Temperature 97.7 F Pulse Rate 84 Pulse Rate [ 76 Apical] Respiratory 20 18 18 Rate Blood Pressure 113/52 L Blood Pressure 118/73 [Left Arm] O2 Sat by Pulse 98 97 97 Oximetry (%) GENERAL: A&Ox3, no acute distress EYES: PERRLA, EOMI ENT: Moist mucus membranes, poor dentition, no obstruction inside pharynx NECK: No JVD LUNGS: CTA, no wheezes HEART: RRR, systolic murmur auscultated on exam ABDOMEN: Soft, tender to palpation in the RLQ, obese, hard-mass felt in suprapubic region MUSCULOSKELETAL: No CVA Tenderness EXTREMITIES: 2+ pulses, no edema. NEUROLOGICAL: Cranial nerves II-XII intact. Laboratory Results - last 24 hr 07/25/18 07/25/18 07/25/18 20:25 20:25 20:25 WBC 18.6 H RBC 3.56 L Hgb 8.6 L Hct 26.9 L D MCV 75.6 L MCH 24.1 L D MCHC 31.9 L RDW 18.7 H Plt Count 522 H MPV 7.3 L Absolute Neuts (auto) 16.9 H Neutrophils % 91.0 H Lymphocytes % 5.2 L D Monocytes % 3.4 L Eosinophils % 0.2 D Basophils % 0.2 Nucleated RBC % 0 Retic Count Sodium Potassium Chloride Carbon Dioxide Anion Gap BUN Creatinine Creat Clearance w eGFR Random Glucose Serum Osmolality Lactic Acid 1.2 Calcium Ferritin Total Bilirubin GGT AST ALT Alkaline Phosphatase Total Protein Albumin Prealbumin Lipase Vitamin B12 Urine Color Urine Appearance Urine pH Ur Specific [place] Urine Protein Urine Glucose (UA) Urine Ketones Urine Blood Urine Nitrite Urine Bilirubin Urine Urobilinogen Ur Leukocyte Esterase Urine WBC (Auto) Urine RBC (Auto) Urine Casts (Auto) U Pathogenic Cast Auto U Epithel Cells (Auto) U Sm Round Cell (Auto) Urine Bacteria (Auto) Carbamazepine 8.5 07/25/18 07/25/18 07/26/18 20:30 21:50 02:24 WBC RBC Hgb Hct MCV MCH MCHC RDW Plt Count MPV Absolute Neuts (auto) Neutrophils % Lymphocytes % Monocytes % Eosinophils % Basophils % Nucleated RBC % Retic Count Sodium 133 L Potassium 3.3 L Chloride 100 Carbon Dioxide 22 Anion Gap 12 BUN 48 H Creatinine 2.3 H Creat Clearance w eGFR 21.49 Random Glucose 166 H Serum Osmolality 293 Lactic Acid Calcium 8.5 Ferritin Total Bilirubin 1.3 H GGT AST 22 ALT 17 Alkaline Phosphatase 163 H Total Protein 6.9 Albumin 2.5 L Prealbumin Lipase 46 L Vitamin B12 Urine Color Dk yellow Urine Appearance Cloudy Urine pH 5.0 Ur Specific [place] 1.016 Urine Protein 2+ H Urine Glucose (UA) Negative Urine Ketones Trace H Urine Blood Negative Urine Nitrite Negative Urine Bilirubin 1+ H Urine Urobilinogen 4.0 e.u/dl H Ur Leukocyte Esterase Trace Urine WBC (Auto) 13 Urine RBC (Auto) 3 Urine Casts (Auto) 99 U Pathogenic Cast Auto None seen U Epithel Cells (Auto) 18.8 U Sm Round Cell (Auto) None seen Urine Bacteria (Auto) 4.05 Carbamazepine 07/26/18 07/26/18 07/26/18 02:24 02:24 02:24 WBC RBC Hgb Hct MCV MCH MCHC RDW Plt Count MPV Absolute Neuts (auto) Neutrophils % Lymphocytes % Monocytes % Eosinophils % Basophils % Nucleated RBC % Retic Count Sodium Potassium Chloride Carbon Dioxide Anion Gap BUN Creatinine Creat Clearance w eGFR Random Glucose Serum Osmolality Lactic Acid Calcium Ferritin 326.1 Total Bilirubin GGT 171 H AST ALT Alkaline Phosphatase Total Protein Albumin Prealbumin 3.7 L Lipase Vitamin B12 308 Urine Color Urine Appearance Urine pH Ur Specific [place] Urine Protein Urine Glucose (UA) Urine Ketones Urine Blood Urine Nitrite Urine Bilirubin Urine Urobilinogen Ur Leukocyte Esterase Urine WBC (Auto) Urine RBC (Auto) Urine Casts (Auto) U Pathogenic Cast Auto U Epithel Cells (Auto) U Sm Round Cell (Auto) Urine Bacteria (Auto) Carbamazepine 07/26/18 06:10 WBC RBC Hgb Hct MCV MCH MCHC RDW Plt Count MPV Absolute Neuts (auto) Neutrophils % Lymphocytes % Monocytes % Eosinophils % Basophils % Nucleated RBC % Retic Count 0.73 Sodium Potassium Chloride Carbon Dioxide Anion Gap BUN Creatinine Creat Clearance w eGFR Random Glucose Serum Osmolality Lactic Acid Calcium Ferritin Total Bilirubin GGT AST ALT Alkaline Phosphatase Total Protein Albumin Prealbumin Lipase Vitamin B12 Urine Color Urine Appearance Urine pH Ur Specific [place] Urine Protein Urine Glucose (UA) Urine Ketones Urine Blood Urine Nitrite Urine Bilirubin Urine Urobilinogen Ur Leukocyte Esterase Urine WBC (Auto) Urine RBC (Auto) Urine Casts (Auto) U Pathogenic Cast Auto U Epithel Cells (Auto) U Sm Round Cell (Auto) Urine Bacteria (Auto) Carbamazepine Active Medications Generic Name Dose Route Start Last Admin Trade Name Freq PRN Reason Stop Dose Admin Heparin Sodium (Porcine) 5,000 unit 07/26/18 10:00 Heparin - SQ Q8H-IV REYMUNDO Ceftriaxone Sodium 1 gm/ 50 mls @ 100 mls/hr 07/26/18 10:00 Dextrose IVPB DAILY REYMUNDO Sodium Chloride 1,000 mls @ 100 mls/hr 07/26/18 02:45 07/26/18 02:48 Normal Saline - IV 100 mls/hr ASDIR REYMUNDO Administration Levetiracetam 750 mg 07/26/18 10:00 Keppra Injection - IVPB BID REYMUNDO CT abdomen/pelvis: large pelvic mass, gallstone CT from 2018: thickened endometrium ASSESSMENT/PLAN: DRAFT 63 year old female with a history of seizures and 1 year of vaginal bleeding presented to the hospital for right lower quadrant abdominal pain 10/10 in severity, nonradiating for several weeks, acutely worse over the past 1 day and admitted for evaluation and treatment of pain with large pelvic mass and abnormal vaginal bleeding #Pelvic Mass: concern for uterine vs ovarian carcinoma, mass was not present one year ago on last CT (only showed thickened endometrium) -OB consulted, pelvic exam should be performed -CA19-9 and CA 125 were ordered by admitting team -would likely need ob gyn physician assistant/onc evaluation -US pelvis #Microcytic Anemia: likely secondary to iron deficiency from blood loss -will order iron studies -Fe/TIBC/iron -B12/folate #Dysphagia: solids over liquids - differential involves esophageal stricture due to gastric acid, esophageal carcinoma, eosinophilic esophagitis, vs less likely achalasia because it is not dysphagia to liquids -concerning due to 60lb weight loss and chronicity/progression -GI consulted -upper endoscopy may be needed this admission -speech/swallow consult #Hyperbilirubinemia: 1.6 and increasing -ordered direct bili -RUQ US shows hypoechoic region in liver, dilated CBD -CT abd/pelvis had large gallstone -GI workup, MRCP/ERCP? #CINTHYA: possibly prerenal in etiology #UTI: abx per primary team Dispo: We will continue to follow the patient. Thank you for this consultative opportunity. Krishna Verduzco, PGY2 Case Discussed with Dr. Terry Visit type - Emergency Visit Emergency Visit: Yes ED Registration Date: 07/25/18 Care time: The patient presented to the Emergency Department on the above date and was hospitalized for further evaluation of their emergent condition. - New Patient This patient is new to me today: Yes Date on this admission: 07/26/18 - Critical Care Critical Care patient: No
--- NOTE | 2018-07-26 09:16 | PN ---
Teaching Attending Note Name of Resident: Dalia Rubio ATTENDING PHYSICIAN STATEMENT I saw and evaluated the patient. I reviewed the resident's note and discussed the case with the resident. I agree with the resident's findings and plan as documented. SUBJECTIVE: Ms Canales says she mainly feels tired and weak today secondary to not sleeping last night. No cp, sob, n/v. OBJECTIVE: Last Vital Signs Temp Pulse Resp BP Pulse Ox 36.5 C 76 18 118/73 97 07/25/18 19:08 07/26/18 06:36 07/26/18 07:08 07/26/18 06:36 07/26/18 07:08 Gen: nad, obese Pulm: ctab w/o w/r/r CV: rrr w/o m/r/g Abd: +bs, s/nt/nd Ext: no c/c/e CBC, BMP 07/25/18 20:30 ASSESSMENT AND PLAN: Problem List - Problems (1) Pelvic mass Assessment/Plan: -with vaginal bleeding, anemia, and weight loss concerning for malignancy -ultrasound and CT scan reviewed -gynecology and oncology consulted -follow up recommendations Code(s): R19.00 - INTRA-ABD AND PELVIC SWELLING, MASS AND LUMP, UNSP SITE (2) CINTHYA (acute kidney injury) Assessment/Plan: -suspect dehydration but unclear -will check FENa labs -hydration with IVF -if does not improve, consult nephrology Code(s): N17.9 - ACUTE KIDNEY FAILURE, UNSPECIFIED (3) Anemia Assessment/Plan: -suspect acute blood loss -but considering AOCD from malignancy -could be multifactorial -does not need transfusion currently -anemia work up with iron, TIBC, ferritin, transferrin, B12, folate -follow up heme/onc recommendations Code(s): D64.9 - ANEMIA, UNSPECIFIED (4) Hypokalemia Assessment/Plan: -replace Code(s): E87.6 - HYPOKALEMIA (5) Vaginal bleeding Assessment/Plan: -gynecology consulted -follow up recommendations Code(s): N93.9 - ABNORMAL UTERINE AND VAGINAL BLEEDING, UNSPECIFIED (6) Seizure Assessment/Plan: -case d/w Dr Miller -patient says last seizure 3 weeks ago -holding carbamazepine secondary to CINTHYA -change keppra to 1000mg IV bid -monitor Code(s): R56.9 - UNSPECIFIED CONVULSIONS (7) Cholelithiasis Assessment/Plan: -surgery consulted and will see Code(s): K80.20 - CALCULUS OF GALLBLADDER W/O CHOLECYSTITIS W/O OBSTRUCTION
--- NOTE | 2018-07-26 09:16 | CONSULT ---
Consult - text type - Consultation Consultation Note: Neurology HISTORY OF PRESENT ILLNESS 63 y/o female presenting to the ER with a CC of abdominal pain that has been progressive over the past several months not made better or worse with anything ; associated with severe constipation, anorexia, and overall poor functional status. Reportedly, seizure two to three weeks ago reportedly not taking her PO seizure medications (keppra and carbemazepine) and has been off for several days. No seizure activity observed while admitted. CT abdomen done and shows a large cystic mass from the uterus or the R-adenexal region entering to the level of kidneys [id number] that is likely cystic malignancy vs. large degenerating leiomyoma. She does have enlarged RP and R-pelvic LNs measuring up to 2.7cm in dimension. She was observed by ER to have blood in the vaginal vault and has had ~4 weeks ago. Of note, patient with CINTHYA and concern for carbmazepine in context of renal dysfunction. Needs increased hydration which may help renal status. Carbmazepine being held in which case, I'd like to increase Keppra to 1000mg twice daily from 750mg to provide improved seizure protection. This can be adjusted down when renal function improves and carbmazepine restarted. 10 sys ROS done and negative aside from HPI PMH, PSH, Family hx, Social hx reviewed Active Medications Heparin Sodium (Porcine) (Heparin -) 5,000 unit SQ TID [facility] Ceftriaxone Sodium 1 gm/ (Dextrose) 50 mls @ 100 mls/hr IVPB DAILY [facility] Sodium Chloride (Normal Saline -) 1,000 mls @ 100 mls/hr IV ASDIR [facility] Last Admin: 07/26/18 02:48 Dose: 100 mls/hr Levetiracetam (Keppra Injection -) 1,000 mg IVPB BID [facility] Vital Signs Period Temp Pulse Resp BP Sys/Dobbins Pulse Ox Last 24 Hr 97.7 F 76-84 18-20 113-118/52-73 97-98 Gen: Awake, alert, responds to questions Card: RRR, nml S1,S2 Resp: Normal symmetric effort, lungs clear to auscultation Abdomen: Soft, nontender, bowel sounds active Musculoskeletal: Adequate range of motion without significant deformity Head atraumatic and normocephalic CN: PERRL, EOMI intact, no apparent facial droop, no abnormalities in facial sensation, palate elevates, uvula and tongue midline Motor: Full strength to confrontation in upper and lower extermities proximally and distally. Tone normal throughout Sensory: Intact to Temperature, light touch, and pinprick in all extremities Reflexes: 2+ biceps, brachioradialis, patellar, achillies Coordination: Intact on [id number] testing CBCD WBC 18.6 K/mm3 (4.0-10.0) H 07/25/18 20: RBC 3.56 M/mm3 (3.60-5.2) L 07/25/18 20:25 Hgb 8.6 GM/dL (10.7-15.3) L 07/25/18 20: Hct 26.9 % (32.4-45.2) L D 07/25/18: MCV 75.6 fl (80-96) L 07/25/18: MCHC 31.9 g/dl (32.0-36.0) L 07/25/18: RDW 18.7 % (11.6-15.6) H 07/25/18 20:25 Plt Count 522 K/MM3 (134-434) H 07/25/18 20:25 MPV 7.3 fl (7.5-11.1) L 07/25/18 20:25 CMP Sodium 133 mmol/L (136-145) L 07/25/18 20:30 Potassium 3.3 mmol/L (3.5-5.1) L 07/25/18 20:30 Chloride 100 mmol/L (98-107) 07/25/18 20:30 Carbon Dioxide 22 mmol/L (21-32) 07/25/18 20:30 Anion Gap 12 MMOL/L (8-16) 07/25/18 20:30 BUN 48 mg/dL (7-18) H 07/25/18 20:30 Creatinine 2.3 mg/dL (0.55-1.3) H 07/25/18 20:30 Creat Clearance w eGFR 21.49 (>60) 07/25/18 20:30 Random Glucose 166 mg/dL (74-106) H 07/25/18 20:30 Calcium 8.5 mg/dL (8.5-10.1) 07/25/18 20:30 Total Bilirubin 1.3 mg/dL (0.2-1) H 07/25/18 20:30 AST 22 U/L (15-37) 07/25/18 20:30 ALT 17 U/L (13-61) 07/25/18 20:30 Alkaline Phosphatase 163 U/L (45-117) H 07/25/18 20:30 Total Protein 6.9 g/dl (6.4-8.2) 07/25/18 20:30 Albumin 2.5 g/dl (3.4-5.0) L 07/25/18 20:30 ASSESSMENT AND PLAN: 63 y/o female presenting to the ER with a CC of abdominal pain that has been progressive over the past several months not made better or worse with anything ; associated with severe constipation, anorexia, and overall poor functional status. Reportedly, seizure two to three weeks ago reportedly not taking her PO seizure medications (keppra and carbemazepine) and has been off for several days. No seizure activity observed while admitted. CT abdomen done and shows a large cystic mass from the uterus or the R-adenexal region entering to the level of kidneys [id number] that is likely cystic malignancy vs. large degenerating leiomyoma. She does have enlarged RP and R-pelvic LNs measuring up to 2.7cm in dimension. She was observed by ER to have blood in the vaginal vault and has had ~4 weeks ago. Of note, patient with CINTHYA and concern for carbmazepine in context of renal dysfunction. Needs increased hydration which may help renal status. Carbmazepine being held in which case, I'd like to increase Keppra to 1000mg twice daily from 750mg to provide improved seizure protection. This can be adjusted down when renal function improves and carbmazepine restarted. Follow up hydration, monitor for seizure events. Continue optimization of hyponatremia. Monitor hyperglycemia, maintain euglycemic range. Seizure precations. Most importantly, medication compliance needed.
--- NOTE | 2018-07-26 09:20 | EKG ---
Test Reason : Blood Pressure : / mmHG Vent. Rate : 078 BPM Atrial Rate : 078 BPM P-R Int : 156 ms QRS Dur : 084 ms QT Int : 364 ms P-R-T Axes : 068 060 038 degrees QTc Int : 414 ms NORMAL SINUS RHYTHM LOW VOLTAGE QRS NONSPECIFIC ST AND T WAVE ABNORMALITY ABNORMAL ECG WHEN COMPARED WITH ECG OF 25-JUN-2017 07:20, T WAVE VARIATION Confirmed by ALAN CALHOUN, LAKHWINDER ([id number]) on 07/26/2018 9:20:06 AM Referred By: Confirmed By:LAKHWINDER PHILLIPS MD
[2018-07-26 09:39] LABS: BASO % 0.2 % (0-2.0); EOS % 0.5 % (0-4.5); HEMATOCRIT 24.6 % (32.4-45.2); HEMOGLOBIN 7.8 GM/dL (10.7-15.3); LYMPH % 5.4 % (8-40); MCH 24.1 pg (25.7-33.7); MCHC 31.9 g/dl (32.0-36.0); MEAN CELL VOLUME 75.6 fl (80-96); MONO % 3.4 % (3.8-10.2); NEUT % 90.5 % (42.8-82.8); PLATELET COUNT 576 K/MM3 (134-434); RBC 3.25 M/mm3 (3.60-5.2); WHITE BLOOD COUNT 16.7 K/mm3 (4.0-10.0)
[2018-07-26 09:48] LABS: INR 1.52 (0.83-1.09)
--- NOTE | 2018-07-26 09:58 | CON.GI ---
Consult Consult Specialty:: Gi consult dictated - Alcohol/Substance Use Hx Alcohol Use: No - Smoking History Smoking history: Never smoked Have you smoked in the past 12 months: No Home Medications - Allergies Allergies/Adverse Reactions: Allergies Allergy/AdvReac Type Severity Reaction Status Date / Time No Known Allergies Allergy Verified 07/25/18 19:03 - Home Medications Home Medications: Ambulatory Orders Carbamazepine 200 mg PO QID 07/25/18 levETIRAcetam [Keppra -] 750 mg PO BID 07/25/18 Physical Exam-GI Vital Signs: Vital Signs Temperature 97.7 F 07/25/18 19:08 Pulse Rate 76 07/26/18 06:36 Respiratory Rate 18 07/26/18 07:08 Blood Pressure 118/73 07/26/18 06:36 O2 Sat by Pulse Oximetry (%) 97 07/26/18 07:08 Labs: CBC, BMP 07/26/18 09:24 INR, PTT INR 1.52 (0.83-1.09) H 07/26/18 09:24
[2018-07-26] MEDS ORDERED: levETIRAcetam 500 MG/5 ML INJECTION VIAL IVPB SCH (10:00)
[2018-07-26 10:06] LABS: ALBUMIN 2.2 g/dl (3.4-5.0); ALK PHOS 157 U/L (45-117); ANION GAP 11 MMOL/L (8-16); BILIRUBIN,TOTAL 1.6 mg/dL (0.2-1); BLOOD UREA NITROGEN 51 mg/dL (7-18); CHLORIDE 102 mmol/L (98-107); CO2 21 mmol/L (21-32); CREATININE 2.1 mg/dL (0.55-1.3); GLUCOSE,RANDOM 188 mg/dL (74-106); MAGNESIUM 1.8 mg/dL (1.8-2.4); PHOSPHOROUS 3.6 mg/dL (2.5-4.9); POTASSIUM 3.7 mmol/L (3.5-5.1); SGOT/AST 24 U/L (15-37); SGPT/ALT 14 U/L (13-61); SODIUM 134 mmol/L (136-145); TOT PROT 6.3 g/dl (6.4-8.2)
[2018-07-26] MEDS: HEPARIN NA (PORCINE) 5,000 UNITS/ML 1ML VIAL SQ SCH ×3 (11:53→21:29)
[2018-07-26] MEDS: CEFTRIAXONE 1 GM in DEXTROSE 5%-WATER - 50 ML IVPB SCH (11:53)
[2018-07-26] MEDS: levETIRAcetam 500 MG/5 ML INJECTION VIAL IVPB SCH ×2 (11:53→21:30)
--- NOTE | 2018-07-26 12:11 | PN ---
Physical Exam: SUBJECTIVE: Patient seen and examined; c/o of dry mouth; OBJECTIVE: Vital Signs Period Temp Pulse Resp BP Sys/Dobbins Pulse Ox Last 24 Hr 97.7 F 76-84 18-20 113-118/52-73 97-98 GENERAL: The patient is obese ; awake, alert, and fully oriented, in no acute distress. NECK: Trachea midline, full range of motion, supple. Breast/axilla; no masses/lumps, nipple discharge or axilary lymphadenopathy LUNGS: Breath sounds equal, clear to auscultation bilaterally, no wheezes, no crackles, no accessory muscle use. HEART: Regular rate and rhythm, S1, S2 without murmur, rub or gallop. ABDOMEN: Soft, nontender, nondistended, normoactive bowel sounds, no guarding, no rebound, no hepatosplenomegaly, no masses. EXTREMITIES: 2+ pulses, warm, well-perfused, no edema. NEUROLOGICAL: Cranial nerves II through XII grossly intact. Normal speech, gait not observed. PSYCH:agitated SKIN: Warm, dry, normal turgor, no rashes or lesions noted Laboratory Results - last 24 hr 07/25/18 07/25/18 07/25/18 20:25 20:25 20:25 WBC 18.6 H RBC 3.56 L Hgb 8.6 L Hct 26.9 L D MCV 75.6 L MCH 24.1 L D MCHC 31.9 L RDW 18.7 H Plt Count 522 H MPV 7.3 L Absolute Neuts (auto) 16.9 H Neutrophils % 91.0 H Lymphocytes % 5.2 L D Monocytes % 3.4 L Eosinophils % 0.2 D Basophils % 0.2 Nucleated RBC % 0 Retic Count PT with INR INR Sodium Potassium Chloride Carbon Dioxide Anion Gap BUN Creatinine Creat Clearance w eGFR Random Glucose Serum Osmolality Lactic Acid 1.2 Calcium Phosphorus Magnesium Ferritin Total Bilirubin GGT AST ALT Alkaline Phosphatase Total Protein Albumin Prealbumin Lipase Vitamin B12 Urine Color Urine Appearance Urine pH Ur Specific [place] Urine Protein Urine Glucose (UA) Urine Ketones Urine Blood Urine Nitrite Urine Bilirubin Urine Urobilinogen Ur Leukocyte Esterase Urine WBC (Auto) Urine RBC (Auto) Urine Casts (Auto) U Pathogenic Cast Auto U Epithel Cells (Auto) U Sm Round Cell (Auto) Urine Bacteria (Auto) Carbamazepine 8.5 07/25/18 07/25/1807/26/19 20:30 21:50 02:24 WBC RBC Hgb Hct MCV MCH MCHC RDW Plt Count MPV Absolute Neuts (auto) Neutrophils % Lymphocytes % Monocytes % Eosinophils % Basophils % Nucleated RBC % Retic Count PT with INR INR Sodium 133 L Potassium 3.3 L Chloride 100 Carbon Dioxide 22 Anion Gap 12 BUN 48 H Creatinine 2.3 H Creat Clearance w eGFR 21.49 Random Glucose 166 H Serum Osmolality 293 Lactic Acid Calcium 8.5 Phosphorus Magnesium Ferritin Total Bilirubin 1.3 H GGT AST 22 ALT 17 Alkaline Phosphatase 163 H Total Protein 6.9 Albumin 2.5 L Prealbumin Lipase 46 L Vitamin B12 Urine Color Dk yellow Urine Appearance Cloudy Urine pH 5.0 Ur Specific [place] 1.016 Urine Protein 2+ H Urine Glucose (UA) Negative Urine Ketones Trace H Urine Blood Negative Urine Nitrite Negative Urine Bilirubin 1+ H Urine Urobilinogen 4.0 e.u/dl H Ur Leukocyte Esterase Trace Urine WBC (Auto) 13 Urine RBC (Auto) 3 Urine Casts (Auto) 99 U Pathogenic Cast Auto None seen U Epithel Cells (Auto) 18.8 U Sm Round Cell (Auto) None seen Urine Bacteria (Auto) 4.05 Carbamazepine 07/26/18 07/26/18 07/26/18 02:24 02:24 02:24 WBC RBC Hgb Hct MCV MCH MCHC RDW Plt Count MPV Absolute Neuts (auto) Neutrophils % Lymphocytes % Monocytes % Eosinophils % Basophils % Nucleated RBC % Retic Count PT with INR INR Sodium Potassium Chloride Carbon Dioxide Anion Gap BUN Creatinine Creat Clearance w eGFR Random Glucose Serum Osmolality Lactic Acid Calcium Phosphorus Magnesium Ferritin 326.1 Total Bilirubin GGT 171 H AST ALT Alkaline Phosphatase Total Protein Albumin Prealbumin 3.7 L Lipase Vitamin B12 308 Urine Color Urine Appearance Urine pH Ur Specific [place] Urine Protein Urine Glucose (UA) Urine Ketones Urine Blood Urine Nitrite Urine Bilirubin Urine Urobilinogen Ur Leukocyte Esterase Urine WBC (Auto) Urine RBC (Auto) Urine Casts (Auto) U Pathogenic Cast Auto U Epithel Cells (Auto) U Sm Round Cell (Auto) Urine Bacteria (Auto) Carbamazepine 07/26/18 07/26/18 07/26/18 06:10 09:24 09:24 WBC 16.7 H RBC 3.25 L Hgb 7.8 L Hct 24.6 L MCV 75.6 L MCH 24.1 L MCHC 31.9 L RDW 19.0 H Plt Count 576 H MPV 7.0 L Absolute Neuts (auto) 15.1 H Neutrophils % 90.5 H Lymphocytes % 5.4 L Monocytes % 3.4 L Eosinophils % 0.5 D Basophils % 0.2 Nucleated RBC % 0 Retic Count 0.73 PT with INR 18.00 H INR 1.52 H Sodium Potassium Chloride Carbon Dioxide Anion Gap BUN Creatinine Creat Clearance w eGFR Random Glucose Serum Osmolality Lactic Acid Calcium Phosphorus Magnesium Ferritin Total Bilirubin GGT AST ALT Alkaline Phosphatase Total Protein Albumin Prealbumin Lipase Vitamin B12 Urine Color Urine Appearance Urine pH Ur Specific [place] Urine Protein Urine Glucose (UA) Urine Ketones Urine Blood Urine Nitrite Urine Bilirubin Urine Urobilinogen Ur Leukocyte Esterase Urine WBC (Auto) Urine RBC (Auto) Urine Casts (Auto) U Pathogenic Cast Auto U Epithel Cells (Auto) U Sm Round Cell (Auto) Urine Bacteria (Auto) Carbamazepine 07/26/18 09:24 WBC RBC Hgb Hct MCV MCH MCHC RDW Plt Count MPV Absolute Neuts (auto) Neutrophils % Lymphocytes % Monocytes % Eosinophils % Basophils % Nucleated RBC % Retic Count PT with INR INR Sodium 134 L Potassium 3.7 Chloride 102 Carbon Dioxide 21 Anion Gap 11 BUN 51 H Creatinine 2.1 H Creat Clearance w eGFR 23.86 Random Glucose 188 H Serum Osmolality Lactic Acid Calcium 8.0 L Phosphorus 3.6 Magnesium 1.8 Ferritin Total Bilirubin 1.6 H GGT AST 24 ALT 14 Alkaline Phosphatase 157 H Total Protein 6.3 L Albumin 2.2 L Prealbumin Lipase Vitamin B12 Urine Color Urine Appearance Urine pH Ur Specific [place] Urine Protein Urine Glucose (UA) Urine Ketones Urine Blood Urine Nitrite Urine Bilirubin Urine Urobilinogen Ur Leukocyte Esterase Urine WBC (Auto) Urine RBC (Auto) Urine Casts (Auto) U Pathogenic Cast Auto U Epithel Cells (Auto) U Sm Round Cell (Auto) Urine Bacteria (Auto) Carbamazepine Active Medications Generic Name Dose Route Start Last Admin Trade Name Freq PRN Reason Stop Dose Admin Heparin Sodium (Porcine) 5,000 unit 07/26/18 10:00 07/26/18 11:53 Heparin - SQ 5,000 unit TID [facility] Administration Ceftriaxone Sodium 1 gm/ 50 mls @ 100 mls/hr 07/26/18 10:00 07/26/18 11:53 Dextrose IVPB 100 mls/hr DAILY [facility] Administration Sodium Chloride 1,000 mls @ 100 mls/hr 07/26/18 02:45 07/26/18 02:48 Normal Saline - IV 100 mls/hr ASDIR [facility] Administration Levetiracetam 1,000 mg 07/26/18 10:00 07/26/18 11:53 Keppra Injection - IVPB 1,000 mg BID [facility] Administration ASSESSMENT/PLAN: This is a 63 year old female with a history of seizure disorder,( on keppra and carbamezapine), who presents with abdominal pain, vaginal bleeding, significant weight loss and dysphagia. Abdomen/pelvis CT with large pelvic mass. #Pelvic mass with vaginal bleed: r/o malignancy; -tumor markers -will ultimately need tissue diagnosis -heme/onc consulted; possible staging w/u -subeditor consulted; #weight loss; sec to malignancy?; esophageal pathology? infectious process? -will order speech and swallow for modified barium swallow -GI consulted need for endoscopy ? due to wt loss; new mass; #microcytic anemia with increased RDW; most likely iron def anemia; acute on chronic anemia; from vaginal bleed -iron studies, tsh, b12, folate, (retic wnl) -differential without blast; abnormal cells; or signs of hemolysis; further w/u pending initial labs -IVF; -monitor CBC -transfuse if hemoglobin>7 #leucocytosis; possible reactive; possible sec to to UTI; vs gallbladder source? #CINTHYA -secondary to dehyration?; vs intrinsic process vs obstructive process; vs medication? -renal /bladder US -urine electrolytes; -calc feNA -avoid nephrotoxins -dc carbamezapine; due to creatinine clearance #Total bili elevated with large stone in neck of gallbladder and dilated CBD- idiregt vs dierct -MRCP when stable -monitor for cholecystitis -GI consulted #Seizure hx -increased keppra to 1000mg bid; due to dc of carbamezapine #VTE: scds #GI: protonix Visit type - Emergency Visit Emergency Visit: Yes ED Registration Date: 07/25/18 Care time: The patient presented to the Emergency Department on the above date and was hospitalized for further evaluation of their emergent condition. - New Patient This patient is new to me today: No - Critical Care Critical Care patient: No
[2018-07-26 13:26] LABS: BILIRUBIN,DIRECT 1.5 mg/dL (0.0-0.2)
[2018-07-26] MEDS ORDERED: HEPARIN NA (PORCINE) 5,000 UNITS/ML 1ML VIAL ONE (14:03)
--- NOTE | 2018-07-26 16:33 | CONS ---
GASTROINTESTINAL CONSULTATION DATE OF CONSULTATION: DATE OF DICTATION: 07/26/2018. HISTORY: The patient is a 63-year-old female with no significant past medical history who presented to the hospital with complaints of right lower quadrant abdominal pain which has been going on for the past couple of months. She states that she was seen by her PMD as an outpatient; however, an ultrasound was ordered and she did not have the test or follow up with her. She also admits to weight loss and inability to keep food down. She admits to nausea without any vomiting. She has also had some episodes of vaginal bleeding during these couple of months. She denies blood in the stool, black stool, upper abdominal pain, fevers, chills. She has never had an upper endoscopy or colonoscopy in the past. PAST MEDICAL HISTORY: As listed in the HPI with the addition of seizure disorder. PAST SURGICAL HISTORY: Denies. SOCIAL HISTORY: Does not smoke, drink or use drugs. FAMILY HISTORY: Both brother and aunt of lung cancer. ALLERGIES: No known drug allergies. HOME MEDICATIONS: Carbamazepine, Keppra. REVIEW OF SYSTEMS: Negative except for pertinent positives in the HPI. PHYSICAL EXAMINATION: Vital Signs: Temperature 97. Pulse 106. Blood pressure 113/52. Respiratory rate 18. Oxygen saturation 97% on room air. General: No acute distress. HEENT: Anicteric sclerae. Cardiovascular: S1, S2. Regular rate and rhythm. Lungs: Bilaterally clear to auscultation. Abdomen: Tender in the right inguinal and lower quadrant area without rebound or guarding. Normal bowel sounds are present.Extremities: No edema LABORATORY: White blood cell count 16.7, hemoglobin 7.8 and hematocrit 24. MCV 75. Platelet count 576. INR 1.5. Sodium 134, potassium 3.7, BUN 61, creatinine 2. Glucose 188. Total bilirubin 1.6. AST 24, ALT 14, alkaline phosphatase 157. B12 is 1308. Urine 2+ protein, trace ketones, 1+ bilirubin. She had a CT scan of the abdomen and pelvis which revealed large cystic pelvic mass with adenopathy but without ascites. Fluid-filled gallbladder and a relatively large stone without secondary signs of cholecystitis. Similar appearance was seen on the previous study. IMPRESSION: Right-sided lower quadrant abdominal pain secondary to pelvic mass , also now with a gallbladder neck stone. Her liver tests are within normal limits. I doubt this is causing an obstruction and she also denies any upper abdominal discomfort. I believe the majority of her symptoms is secondary to her pelvic mass. RECOMMENDATIONS: Advance diet as tolerated. MRCP to further evaluate the gallbladder and biliary tree. Surgery consultation, gynecology consultation and oncology consultation. She will need a diagnostic upper endoscopy and colonoscopy to further evaluate her symptoms. However, most importantly would be to address her pelvic mass at this time. The patient will be followed by the GI service. ENDER THOMPSON DO LUFMA/[id number] MTDD
--- NOTE | 2018-07-26 19:33 | PN ---
Teaching Attending Note Name of Resident: Krishna Verduzco ATTENDING PHYSICIAN STATEMENT I saw and evaluated the patient. I reviewed the resident's note and discussed the case with the resident. I agree with the resident's findings and plan as documented. SUBJECTIVE: Patient seen and examined Presents with 1 1/2 year history of vaginal bleeding ; No recent PAP or mammography. Has had significant weight loss and has dysphagia. Menarche age 14, menopause early 50's. Nulliparous; No hormones, no control . Family history positive for brother who recently of lung cancer ( no history of other malignancy in family) Last Vital Signs Temp Pulse Resp BP Pulse Ox 98.7 F 86 18 111/40 L 99 07/26/18 18:33 07/26/18 18:33 07/26/18 18:33 07/26/18 18:33 07/26/18 18:33 Exam limited with patint lying in decubitus position HEENT: SHAYNE, EOM Intact, poor dentition Oropharynx: No thrush, No mucositis Neck: Supple Nodes: Without adenopathy Breasts: LUOQ mass- difficutl to assess in view of positioning of patient and lack of cooperation Cor: RSR, No murmurs, No gallops Lungs: Clear to P&A Abd: Soft, Normal bowel sounds, No organomegaly, obese Ext:No significant edema Skin: No rashes, Integument intact CBC, BMP 07/26/18 09:24 07/26/18 09:24 Current Medications Generic Name Dose Route Start Last Admin Trade Name Freq PRN Reason Stop Dose Admin Heparin Sodium (Porcine) 5,000 unit 07/26/18 10:00 07/26/18 14:07 Heparin - SQ Not Given TID [facility] Ceftriaxone Sodium 1 gm/ 50 mls @ 100 mls/hr 07/26/18 10:00 07/26/18 11:53 Dextrose IVPB 100 mls/hr DAILY [facility] Administration Sodium Chloride 1,000 mls @ 100 mls/hr 07/26/18 02:45 07/26/18 02:48 Normal Saline - IV 100 mls/hr ASDIR [facility] Administration Levetiracetam 1,000 mg 07/26/18 10:00 07/26/18 11:53 Keppra Injection - IVPB 1,000 mg BID [facility] Administration Pantoprazole Sodium 40 mg 07/27/18 10:00 Protonix Iv IVPUSH DAILY [facility] OBJECTIVE:Impression: vaginal bleeding CT with large pelvic mass- 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 Will need [employer] consult Will need GI evaluation for dysphagia, with frequent nausea and emesis and significant weight loss Will need to evaluate when patient properly positioned and more cooperative for breast exam. ASSESSMENT AND PLAN:
[2018-07-27] MEDS ORDERED: ACETAMINOPHEN 325 MG TABLET (FP) PO ONE (05:21)
[2018-07-27] MEDS: SODIUM CHLORIDE 1,000 ML IV SCH (05:34)
[2018-07-27] MEDS: HEPARIN NA (PORCINE) 5,000 UNITS/ML 1ML VIAL SQ SCH (05:34)
[2018-07-27] MEDS ORDERED: PT OWN MED DRAWER 7, Y5N ONE (06:57)
[2018-07-27 07:19] LABS: BASO % 0.2 % (0-2.0); EOS % 0.2 % (0-4.5); HEMATOCRIT 23.5 % (32.4-45.2); HEMOGLOBIN 7.5 GM/dL (10.7-15.3); LYMPH % 8.5 % (8-40); MCH 24.3 pg (25.7-33.7); MCHC 32.1 g/dl (32.0-36.0); MEAN CELL VOLUME 75.7 fl (80-96); MEAN PLT VOLUME 7.5 fl (7.5-11.1); MONO % 4.5 % (3.8-10.2); NEUT % 86.6 % (42.8-82.8); PLATELET COUNT 542 K/MM3 (134-434); RDW 18.9 % (11.6-15.6); WHITE BLOOD COUNT 13.5 K/mm3 (4.0-10.0)
[2018-07-27 07:46] LABS: ALK PHOS 134 U/L (45-117); ANION GAP 12 MMOL/L (8-16); BILIRUBIN,DIRECT 1.6 mg/dL (0.0-0.2); BLOOD UREA NITROGEN 51 mg/dL (7-18); CALCIUM 8.3 mg/dL (8.5-10.1); CHLORIDE 106 mmol/L (98-107); CO2 18 mmol/L (21-32); CREATININE 1.3 mg/dL (0.55-1.3); GLUCOSE,RANDOM 179 mg/dL (74-106); MAGNESIUM 2.3 mg/dL (1.8-2.4); PHOSPHOROUS 3.3 mg/dL (2.5-4.9); SGOT/AST 28 U/L (15-37); SGPT/ALT 13 U/L (13-61); SODIUM 136 mmol/L (136-145); TOT PROT 5.9 g/dl (6.4-8.2)
[2018-07-27 08:02] LABS: LDH 233 U/L (84-246)
--- NOTE | 2018-07-27 09:16 | PN ---
Progress Note (short form) - Note Progress Note: Neurology HISTORY OF PRESENT ILLNESS 63 y/o female presenting to the ER with a CC of abdominal pain that has been progressive over the past several months not made better or worse with anything ; associated with severe constipation, anorexia, and overall poor functional status. Reportedly, seizure two to three weeks ago reportedly not taking her PO seizure medications (keppra and carbemazepine) and has been off for several days. No seizure activity observed while admitted. CT abdomen done and shows a large cystic mass from the uterus or the R-adenexal region entering to the level of kidneys [id number] that is likely cystic malignancy vs. large degenerating leiomyoma. She does have enlarged RP and R-pelvic LNs measuring up to 2.7cm in dimension. She was observed by ER to have blood in the vaginal vault and has had ~4 weeks ago. Of note, patient with CINTHYA and concern for carbmazepine in context of renal dysfunction. Increased hydration which appears to have helped renal status, CrCl now 41. Carbmazepine being held, increased to Keppra to 1000mg twice daily from 750mg to provide improved seizure protection. This can be adjusted down when renal function improves and carbmazepine restarted. She denies seizure events overnight, discussed with nurse. Patient with complaints regarding comfort, asking to be bed, though NPO for possible intervention. Active Medications Heparin Sodium (Porcine) (Heparin -) 5,000 unit SQ TID [facility] Last Admin: 07/27/18 05:34 Dose: Not Given Ceftriaxone Sodium 1 gm/ (Dextrose) 50 mls @ 100 mls/hr IVPB DAILY [facility] Last Admin: 07/26/18 11:53 Dose: 100 mls/hr Sodium Chloride (Normal Saline -) 1,000 mls @ 100 mls/hr IV ASDIR [facility] Last Admin: 07/27/18 05:34 Dose: 100 mls/hr Levetiracetam (Keppra Injection -) 1,000 mg IVPB BID [facility] Last Admin: 07/26/18 21:30 Dose: 1,000 mg Pantoprazole Sodium (Protonix Iv) 40 mg IVPUSH DAILY [facility] Vital Signs Period Temp Pulse Resp BP Sys/Dobbins Pulse Ox Last 24 Hr 98.6 F-101.1 F 82-88 18-18 110-125/40-70 98-99 Gen: Awake, alert, responds to questions Card: RRR, nml S1,S2 Resp: Normal symmetric effort, lungs clear to auscultation Abdomen: Soft, nontender, obesely distended Musculoskeletal: Adequate range of motion without significant deformity Head atraumatic and normocephalic CN: PERRL, EOMI intact, no apparent facial droop, no abnormalities in facial sensation, palate elevates, uvula and tongue midline Motor: IntactStrength to confrontation in upper and lower extermities proximally and distally. Tone normal throughout Sensory: Intact to Temperature, light touch, and pinprick in all extremities Reflexes: 2+ biceps, brachioradialis, patellar, achillies Coordination: Intact on [id number] testing CBCD WBC 13.5 K/mm3 (4.0-10.0) H 07/27/18 06:00 RBC 3.10 M/mm3 (3.60-5.2) L 07/27/18 06:00 Hgb 7.5 GM/dL (10.7-15.3) L 07/27/18 06:00 Hct 23.5 % (32.4-45.2) L 07/27/18 06:00 MCV 75.7 fl (80-96) L 07/27/18 06:00 MCHC 32.1 g/dl (32.0-36.0) 07/27/18 06:00 RDW 18.9 % (11.6-15.6) H 07/27/18 06:00 Plt Count 542 K/MM3 (134-434) H 07/27/18 06:00 MPV 7.5 fl (7.5-11.1) 07/27/18 06:00 CMP Sodium 136 mmol/L (136-145) 07/27/18 06:00 Potassium 3.0 mmol/L (3.5-5.1) L 07/27/18 06:00 Chloride 106 mmol/L (98-107) 07/27/18 06:00 Carbon Dioxide 18 mmol/L (21-32) L 07/27/18 06:00 Anion Gap 12 MMOL/L (8-16) 07/27/18 06:00 BUN 51 mg/dL (7-18) H 07/27/18 06:00 Creatinine 1.3 mg/dL (0.55-1.3) 07/27/18 06:00 Creat Clearance w eGFR 41.50 (>60) 07/27/18 06:00 Random Glucose 179 mg/dL (74-106) H 07/27/18 06:00 Calcium 8.3 mg/dL (8.5-10.1) L 07/27/18 06:00 Total Bilirubin 2.0 mg/dL (0.2-1) H 07/27/18 06:00 AST 28 U/L (15-37) 07/27/18 06:00 ALT 13 U/L (13-61) 07/27/18 06:00 Alkaline Phosphatase 134 U/L (45-117) H 07/27/18 06:00 Total Protein 5.9 g/dl (6.4-8.2) L 07/27/18 06:00 Albumin 2.0 g/dl (3.4-5.0) L 07/27/18 06:00 ASSESSMENT AND PLAN: 63 y/o female presenting to the ER with a CC of abdominal pain that has been progressive over the past several months not made better or worse with anything ; associated with severe constipation, anorexia, and overall poor functional status. Reportedly, seizure two to three weeks ago reportedly not taking her PO seizure medications (keppra and carbemazepine) and has been off for several days. No seizure activity observed while admitted. CT abdomen done and shows a large cystic mass from the uterus or the R-adenexal region entering to the level of kidneys [id number] that is likely cystic malignancy vs. large degenerating leiomyoma. She does have enlarged RP and R-pelvic LNs measuring up to 2.7cm in dimension. She was observed by ER to have blood in the vaginal vault and has had ~4 weeks ago. Of note, patient with CINTHYA and concern for carbmazepine in context of renal dysfunction. ncreased hydration which appears to have helped renal status, CrCl now 41. Carbmazepine being held, increased to Keppra to 1000mg twice daily from 750mg to provide improved seizure protection. This can be adjusted down when renal function improves and carbmazepine restarted. She denies seizure events overnight, discussed with nurse. Patient with complaints regarding comfort, asking to be bed, though NPO for possible intervention. Follow up hydration, monitor for seizure events. Continue optimization of hyponatremia. Monitor hyperglycemia, maintain euglycemic range. Seizure precations. Most importantly, medication compliance needed.
[2018-07-27] MEDS ORDERED: SODIUM CHLORIDE 1,000 ML with POTASSIUM CHLORIDE 40 MEQ IV SCH (09:42)
[2018-07-27] MEDS ORDERED: ACETAMINOPHEN 1000 MG/100 ML VIAL (NON FORMULARY) IVPB PRN (09:44)
--- NOTE | 2018-07-27 09:50 | CONSULT ---
Admitting History and Physical - Primary Care Physician PCP: Abhinav Alfaro - Admission History of Present Illness: This is a 63 year old female with a history of seizure disorder,( on keppra and carbamezapine), who presents with abdominal pain, vaginal bleeding, significant weight loss and dysphagia. Abdomen/pelvis CT with large pelvic mass. Per Oncology-vaginal bleeding CT with large pelvic mass- Likely endometrial ca This is my first consult with this pt. Pt NPO. Per pt, when she eats solids, they "stick in her throat and she needs to spit them out". Pt's eyes were closed. She reports drinking liquids well but refused trial as she said she is getting a kidney operation today and if she doesnt she wants to . History Source: Patient Limitations to Obtaining History: Clinical Condition - Smoking History Smoking history: Never smoked Have you smoked in the past 12 months: No - Alcohol/Substance Use Hx Alcohol Use: No History - Admission Reason For Visit: ABD MASS,ANEMIA,ABNORMAL VAGINAL BLEEDING, - General Mental Status: Awake and Alert Ability to Follow Directions: Fair Head/Neck Control: Fair - Hearing Hearing: Normal Speech Evaluation - Communication Primary Language: RWANDAN Communication: Yes: Within Normal Limits Oral Expression Ability: Yes: No Impairment - Speech Production Able to Make Needs Known: Yes: WNL Intelligibility: Yes: WNL - Speech Characteristics Voice Loudness: Normal Voice Pitch: Yes: Normal Voice Phonatory-based Quality: Yes: Normal Speech Pattern: Normal Nasal Resonance: Normal Articulation: Yes: Precise - Language/Auditory Comprehension Follows: Yes: 1 Stage Simple Commands - Language/Verbal Expression Able to Respond to Simple Queries: Yes: WNL Able to Communicate Wants and Needs: Yes: WNL Functional Communication Status: Yes: WNL - Swallow Evaluation/Bedside Assessment Current Nutritional Intake: NPO Facial Symmetry at Rest: Symmetrical Facial Symmetry on Retraction: Symmetrical Against Resistance Opening: Normal Against Resistance Closing: Normal Pucker Lips: Normal Smile: Normal Lingual Movement: Normal, Symmetric Lingual Speed of Movement: Normal Lingual Movement Strgth Against Opposition: Normal Lingual Movement Characteristics: Normal Velopharyngeal Movement: Normal Laryngeal Movement: Able to Palpate Recommendations - Speech Evaluation, Impression/Plan Impression: Refused PO trial, insisting on surgery today for "kidney". Reports tolerance of liquids only - Disposition Discharge to: To be Determined - Dysphagia Impressions/Plan Dysphagia Impressions: Ongoing Evaluation Recommendations: GI Consult - Recommendations Diet Consistency: Other (liquids, Ensure?)
[2018-07-27] MEDS ORDERED: PANTOPRAZOLE SODIUM 40 MG VIAL IVPUSH SCH (10:00)
--- NOTE | 2018-07-27 10:26 | PN ---
Progress Note (short form) - Note Progress Note: ID consult dictated imp/reccd 63 yo female with seizure disorderadmitted with abdominal pain, weight loss, constipation, inability to eat - early satiety history of vaginal bleeding about a year ago no smoking, nulliparous found to have a large pelvic cystic mass with adenopathy on ct scan noted to have leukocytosis, anemia, cinthya renal insufficiency and leukocytosis have improved since admission asked to evaluate for fever 101 this am no chills, feels hot currently difficult exam as she has now left lower pelvic pain and is refusing to change position in the bed, laying on her left side no cough, no ob exam notable for very dry oral mucosa clear lungs distended abdomen, tender diffusely fever- ?source f/u cultures, cxray rocephin for now pelvic mass- gyne/oncology evaluation anemia- microcytic, gyne vs gi blood loss constipation- r/o bowel obstruction inability to eat/dysphagia- suspect will need endoscopy, check cxray Problem List - Problems (1) Fever Code(s): R50.9 - FEVER, UNSPECIFIED (2) Pelvic mass Code(s): R19.00 - INTRA-ABD AND PELVIC SWELLING, MASS AND LUMP, UNSP SITE (3) Anemia Code(s): D64.9 - ANEMIA, UNSPECIFIED (4) CINTHYA (acute kidney injury) Code(s): N17.9 - ACUTE KIDNEY FAILURE, UNSPECIFIED (5) Acute constipation Code(s): K59.00 - CONSTIPATION, UNSPECIFIED (6) Dysphagia Code(s): R13.10 - DYSPHAGIA, UNSPECIFIED
--- NOTE | 2018-07-27 10:36 | DS ---
Physical Exam: SUBJECTIVE: Patient seen and examined; complaints of severe abdominal pain; will not eat due to dysphagia; denied evaluation of speech and swallow therapist today. OBJECTIVE: Vital Signs Period Temp Pulse Resp BP Sys/Dobbins Pulse Ox Last 24 Hr 98.6 F-101.1 F 82-88 18-18 110-125/40-70 98-99 PHYSICAL EXAM GENERAL: The patient is obese; awake, alert, and fully oriented, in pain. T THROAT : oropharynx clear without exudates, dry mucous membranes. NECK: Trachea midline, full range of motion, supple. LUNGS: Breath sounds equal, clear to auscultation bilaterally, no wheezes, no crackles, no accessory muscle use. HEART: Regular rate and rhythm, S1, S2 without murmur, rub or gallop. ABDOMEN: obese; very tender all quadrant; bl lower mostly; BS+; large pelvic mass palp EXTREMITIES: 2+ pulses, warm, well-perfused, no edema. NEUROLOGICAL: anxious; agitated SKIN: Warm, dry, normal turgor, no rashes or lesions noted. LABS CBCD WBC 13.5 K/mm3 (4.0-10.0) H 07/27/18 06:00 RBC 3.10 M/mm3 (3.60-5.2) L 07/27/18 06:00 Hgb 7.5 GM/dL (10.7-15.3) L 07/27/18 06:00 Hct 23.5 % (32.4-45.2) L 07/27/18 06:00 MCV 75.7 fl (80-96) L 07/27/18 06:00 MCHC 32.1 g/dl (32.0-36.0) 07/27/18 06:00 RDW 18.9 % (11.6-15.6) H 07/27/18 06:00 Plt Count 542 K/MM3 (134-434) H 07/27/18 06:00 MPV 7.5 fl (7.5-11.1) 07/27/18 06:00 CMP Sodium 136 mmol/L (136-145) 07/27/18 06:00 Potassium 3.0 mmol/L (3.5-5.1) L 07/27/18 06:00 Chloride 106 mmol/L (98-107) 07/27/18 06:00 Carbon Dioxide 18 mmol/L (21-32) L 07/27/18 06:00 Anion Gap 12 MMOL/L (8-16) 07/27/18 06:00 BUN 51 mg/dL (7-18) H 07/27/18 06:00 Creatinine 1.3 mg/dL (0.55-1.3) 07/27/18 06:00 Creat Clearance w eGFR 41.50 (>60) 07/27/18 06:00 Random Glucose 179 mg/dL (74-106) H 07/27/18 06:00 Calcium 8.3 mg/dL (8.5-10.1) L 07/27/18 06:00 Total Bilirubin 2.0 mg/dL (0.2-1) H 07/27/18 06:00 AST 28 U/L (15-37) 07/27/18 06:00 ALT 13 U/L (13-61) 07/27/18 06:00 Alkaline Phosphatase 134 U/L (45-117) H 07/27/18 06:00 Total Protein 5.9 g/dl (6.4-8.2) L 07/27/18 06:00 Albumin 2.0 g/dl (3.4-5.0) L 07/27/18 06:00 EXAM#: TYPE/EXAM: RESULT: [id number] CT/ABDOMEN PELVIS CT W/O CONTR Comparison: 06/25/17. Contiguous transaxial images were obtained from the diaphragmatic domes and pubic symphysis without the administration of oral and IV contrast. Sagittal and coronal reconstructions were performed. Lung bases: Minimal atelectasis. Bone: Osteopenia and degenerative changes. Liver: Negative. Known hemangioma in the posterior right lobe of liver seen on prior IV contrast examination is well identified on this noncontrast study. Gallbladder: Gallbladder contains a relatively large stone in the neck without secondary signs of cholecystitis. Correlate clinically. Biliary tree: Negative. Spleen: Negative. Pancreas: Negative. Adrenals: Negative. Kidneys: Negative. No hydronephrosis. Pelvis: There is a Winston catheter in a decompressed bladder. Large central cystic mass measuring 22.7 cm in length x 16.8 cm in width x 12.6 cm in AP dimension. This also very significant change in approximately 13 months time interval. No ascites is seen. There is no retroperitoneal adenopathy including a mass of presumed enlarged nodes just the left and anterior to the aorta at the level of the mid kidneys. It measures 3.6 x 3.1 cm left. There are also enlarged nodes in the right pelvic sidewall. Bowel: Retention of stool in the right colon. Other: Small hiatal hernia. Inguinal hernia with fat. Impression: Extremely large cystic midline pelvic mass with adenopathy but without ascites. The differential includes a cystic ovarian mass and a large degenerating myoma. Correlation with ultrasound and MRI suggested. Also note the fluid-filled gallbladder with relatively large stone in the neck are without secondary signs of cholecystitis. A similar appearance was seen on the prior study. Abdominal US: IMPRESSION: Mild hepatomegaly with mild fatty infiltration versus hepatocellular disease. Echogenic lesion in the right hepatic lobe measuring 2 x 1.6 cm that statistically may represent a cavernous hemangioma. Over distended gallbladder with an intraluminal stone measuring 1.4 cm and without sonographic evidence of acute cholecystitis. Limited visualization of the pancreas with suggestion of a prominent pancreatic head. Dilated common bile duct measuring 1.4 cm for which further evaluation is needed. Limited evaluation of a hypoechoic complex masslike density in the mid abdomen likely representing a large complex cyst measuring 18.7 x 11.8 cm for which further evaluation is recommended. Pelvis ultrasound, transabdominal. Compared to prior transvaginal pelvis ultrasound dated 03/13/2018. The uterus is markedly enlarged measuring 23.5 x 16.4 cm with a large exophytic complex masslike density inseparable from the fundus measuring 17.2 cm. It demonstrates diffuse heterogeneous echotexture with hypoechoic/anechoic foci mainly peripheral suggestive of fluid loculation/ cystic changes. Both ovaries were not visualized. There is no gross free fluid in the cul-de-sac HOSPITAL COURSE: Date of Admission:07/25/18 Date of Discharge: 07/27/18 This is a 63 year old female with a history of seizure disorder,, who presents with abdominal pain, vaginal bleeding, significant weight loss (60lbs)and dysphagia. Found to have Abdomen/pelvis CT with large pelvic mass as noted above. Patient to be transferred to [facility] oncology service under DR. lAvarez. On admission patient was found to be anemic with no active bleeding from vagina. She was put on fluids and cbc was monitored. LABS noted above. She has not required PRBC thus far. Anemia was microcytic with with increased RDW; most likely iron deficiency anemia. Patient was evaluated by our hematolgoy service who proposed endometrial cancer as most likely differential diagnosis. They also felt a possible right breast mass on physical exam that needs further evaluation with imaging. Patient needing [facility]/ONC service (not available here) , which prompted transfer. Patient will need GI evaluation for dysphagia, with frequent nausea and emesis and significant weight loss. Her total bilirubin was was also elevated with large stone in neck of gallbladder and dilated CBD seen on abdominal US, as noted above. Need for MRCP when stable. Patient admission labs evident for CINTHYA, possible due to dehydration. She was on anti epileptic medications; keppra and carbamezapine (which can cause CINHTYA). Carbapezapine was dc'd and keppra was increased to 1000mg bid. Currently on Ceftriaxone for UTI; with fever this am, w/u for another infectious process pending. Minutes to complete discharge: 45 Discharge Summary Reason For Visit: ABD MASS,ANEMIA,ABNORMAL VAGINAL BLEEDING, Current Active Problems CINTHYA (acute kidney injury) (Acute) Abdominal mass (Acute) Anemia (Acute) Cholelithiasis (Acute) Hypokalemia (Acute) Pelvic mass (Acute) Seizure (Acute) Condition: Fair - Instructions Diet, Activity, Other Instructions: Ms. Canales, you have been diagnosed with a pelvic mass, as discussed. You will be transferred to a facility that can further evaluate and manage this. Disposition: TRANSFER ACUTE CARE/OTHER HOSP - Home Medications Comprehensive Discharge Medication List: Ambulatory Orders Carbamazepine 200 mg PO QID 07/25/18 levETIRAcetam [Keppra -] 750 mg PO BID 07/25/18 This patient is new to me today: Yes Date on this admission: 07/27/18 Emergency Visit: Yes ED Registration Date: 07/25/18 Care time: The patient presented to the Emergency Department on the above date and was hospitalized for further evaluation of their emergent condition. Critical Care patient: No - Discharge Referral Referred to [facility] No
[2018-07-27 10:39] LABS: ANION GAP 10 MMOL/L (8-16); BLOOD UREA NITROGEN 53 mg/dL (7-18); CALCIUM 8.3 mg/dL (8.5-10.1); CHLORIDE 106 mmol/L (98-107); CO2 20 mmol/L (21-32); CREATININE 1.3 mg/dL (0.55-1.3); GLUCOSE,RANDOM 163 mg/dL (74-106); POTASSIUM 3.3 mmol/L (3.5-5.1); SODIUM 136 mmol/L (136-145)
[2018-07-27 11:07] LABS: ANISOCYTOSIS 1+; MACROCYTOSIS 0; OVALOCYTE 1+; PLATELET ESTIMATE INCREASED
[2018-07-27] MEDS ORDERED: morphine SULFATE 4 MG/ML VIAL IVPUSH ONE (11:20)
[2018-07-27] MEDS ORDERED: morphine SULFATE 4 MG/ML VIAL IVPUSH PRN (11:20)
[2018-07-27] MEDS ORDERED: cefTRIAXone SODIUM 1 GM VIAL ONE (11:24)
[2018-07-27] MEDS ORDERED: MORPHINE SULFATE 2 MG/ML VIAL ONE (11:24)
[2018-07-27] MEDS ORDERED: DEXTROSE 5%-WATER - 50 ML IVPB ONE (11:25)
[2018-07-27] MEDS: levETIRAcetam 500 MG/5 ML INJECTION VIAL IVPB SCH (11:42)
[2018-07-27] MEDS: CEFTRIAXONE 1 GM in DEXTROSE 5%-WATER - 50 ML IVPB SCH (11:43)
[2018-07-27] MEDS ORDERED: MORPHINE SULFATE 2 MG/ML VIAL IVPUSH PRN (11:52)
--- NOTE | 2018-07-27 12:06 | CONS ---
DATE OF CONSULTATION: DATE OF DICTATION: 07/27/2018 REQUESTED BY: The hospitalist service. HISTORY OF PRESENT ILLNESS: This is a 63-year-old woman with a history of a seizure disorder admitted with abdominal pain for many weeks that is worsening, constipation, unable to eat, 60-pound weight loss, intermittent vaginal bleeding. She has had trouble swallowing solid foods. She notes early satiety as well. She is able to drink clear liquids. She has had constipation. She is not sure when she last moved her bowels and she denies having had passed any flatus. She on admission had no fevers or chills. She had been seen in the emergency room the prior year for vaginal bleeding and referred to both Primary Care and Gynecology. It is not clear if she followed up. PAST MEDICAL HISTORY: Notable for seizure disorder since childhood and she has had this intermittent vaginal bleeding. She has never had any surgery. SOCIAL HISTORY: She lives with her mother. There is no history of any cigarette, alcohol or substance use. FAMILY HISTORY: Notable for lung cancer in a brother and aunt. ALLERGIES: She has no known drug allergies. MEDICATIONS: Include carbamazepine and Keppra. REVIEW OF SYSTEMS: She notes abdominal pain. She notes constipation. She is not clear if she had any flatus. She denies any dysuria. She has no cough or shortness of breath. She notes severe pain that is making it difficult for her to ambulate in her lower pelvis. PHYSICAL EXAMINATION: General: She is awake and alert. She is lying on her left side. She does not want to move. Vital Signs: Temperature is 101 which is her T-max, pulse of 88, blood pressure 125/70, respiratory rate is 18, she is saturating 98%. HEENT: She is normocephalic. Her eyes are anicteric. Neck: Supple. I cannot palpate any adenopathy, but this is a limited exam as she does not want to move in the bed due to pain. Heart: Regular rate and rhythm. Lungs: Clear to auscultation. Abdomen: Soft. She has diffuse discomfort. She does not want to be examined most notably in the lower abdomen as compared to the upper abdomen. Extremities: Without edema. LABORATORIES: Notable for admission white count of 18.6, today 13.5, hemoglobin is 7.5 with an MCV of 75 and platelets of 542. Her chemistries: On admission BUN was 51 and creatinine was 2.1, with hydration are now 53 and 1.3. Alkaline phosphatase is 134. Urinalysis has trace leukocyte esterase and 13 white cells. Cultures are pending. I am asked to see her because she had fever of 101 overnight. She is resting quite comfortably. ASSESSMENT: 1. In summary this is a 63-year-old woman with probably a gynecologic malignancy, fever of unclear source. She has no rigors or chills and is hemodynamically stable. Would follow up cultures, chest x-ray. Would continue Rocephin for now. 2. Pelvic mass for Gynecology Oncology evaluation. 3. Anemia. With this and the dysphagia will ultimately require a Gastroenterology evaluation. 4. Constipation with no flatus, rule out bowel obstruction. Patient was seen and examined. Case was discussed with the hospitalist. LUCIANO MENSAH M.D. [id number]
--- NOTE | 2018-07-27 15:05 | PN ---
Progress Note (short form) - Note Progress Note: Attempted to see pt this am however pt requested I return later. Saw this afternoon, still with abdominal pain though frustrated and did not want to offer any further information. Refused examination. Per primary team, pt will be transferred this afternoon to [facility] for further management including gynecology and oncology evaluations.
[2018-07-27 15:36] VITALS: BP 110/55; PULSE 76; TEMP 99
--- NOTE | 2018-07-27 16:11 | PN ---
Teaching Attending Note Name of Resident: Dalia Rubio ATTENDING PHYSICIAN STATEMENT I saw and evaluated the patient. I reviewed the resident's note and discussed the case with the resident. I agree with the resident's findings and plan as documented with exceptions below. SUBJECTIVE: Patient seen and examined. still with abdominal pain. Reports vaginal bleeding only when examined. Reports anorexia, also constipated. No dypsnea noted. OBJECTIVE: Vital Signs Period Temp Pulse Resp BP Sys/Dobbins Pulse Ox Last 24 Hr 98.6 F-101.1 F 76-88 18-21 110-125/40-70 98-99 Intake & Output 07/24/18 07/25/18 07/26/18 07/27/18 23:59 23:59 23:59 23:59 Intake Total 0 1100 Output Total 200 Balance -200 0 1100 Weight 220 lb General: lying in bed, pale, weak, no acute distress Chest: decreased effort, no rales or wheezing Abdomen:Soft, obese, lower abdominal tenderness but refuses exam ("I can't keep doing this again and again"), positive bowel sounds Extremities: no edema Home Medications Medication Instructions Recorded Acetaminophen Injection [Ofirmev 1,000 mg IVPB Q6H PRN vial 07/27/18 Injection -] Ceftriaxone [Rocephin -] 1 gm IVPB DAILY vial 07/27/18 Morphine Sulfate 2 mg IVPUSH Q4H PRN #1 vial MDD 8 07/27/18 Pantoprazole Sodium [Protonix IV] 40 mg IVPUSH DAILY vial 07/27/18 Potassium Chloride [KCl -] 40 meq IV Q10H vial 07/27/18 Sodium Chloride [Normal Saline -] 1,000 ml IV ASDIR 1 Days infus.bag 07/27/18 levETIRAcetam INJECTION [Keppra 1,000 mg IVPB BID ml 07/27/18 Injection -] Active Medications Acetaminophen (Ofirmev Injection -) 1,000 mg IVPB Q6H PRN PRN Reason: PAIN LEVEL 4 - 6 Ceftriaxone Sodium 1 gm/ (Dextrose) 50 mls @ 100 mls/hr IVPB DAILY [facility] Last Admin: 07/27/18 11:43 Dose: 100 mls/hr Potassium Chloride 40 meq/ (Sodium Chloride) 1,020 mls @ 100 mls/hr IV Q10H [facility] Last Admin: 07/27/18 11:42 Dose: 100 mls/hr Levetiracetam (Keppra Injection -) 1,000 mg IVPB BID [facility] Last Admin: 07/27/18 11:42 Dose: 1,000 mg Morphine Sulfate (Morphine Sulfate) 2 mg IVPUSH Q4H PRN PRN Reason: PAIN LEVEL 6-10 Last Admin: 07/27/18 16:03 Dose: 2 mg Pantoprazole Sodium (Protonix Iv) 40 mg IVPUSH DAILY [facility] Last Admin: 07/27/18 11:42 Dose: 40 mg Laboratory Results - last 24 hr 07/26/18 07/26/18 07/26/18 02:24 14:00 18:15 WBC RBC Hgb Hct MCV MCH MCHC RDW Plt Count MPV Absolute Neuts (auto) Neutrophils % Neutrophils % (Manual) Band Neutrophils % Lymphocytes % Lymphocytes % (Manual) Monocytes % Monocytes % (Manual) Eosinophils % Eosinophils % (Manual) Basophils % Basophils % (Manual) Myelocytes % (Man) Promyelocytes % (Man) Blast Cells % (Manual) Nucleated RBC % Metamyelocytes Hypochromia Platelet Estimate Polychromasia Poikilocytosis Anisocytosis Microcytosis Macrocytosis Ovalocytes ESR Sodium Potassium Chloride Carbon Dioxide Anion Gap BUN Creatinine Creat Clearance w eGFR Random Glucose Calcium Phosphorus Magnesium Transferrin 137 L Total Bilirubin Direct Bilirubin AST ALT Alkaline Phosphatase LD Total C-Reactive Protein Total Protein Albumin CA 19-9 Antigen 4 CA 125 Antigen 115.9 H Vitamin B12 Ur Random Sodium Urine Creatinine Influenza A (Rapid) Negative Influenza B (Rapid) Negative 07/26/18 07/27/18 07/27/18 19:46 06:00 06:00 WBC RBC Hgb Hct MCV MCH MCHC RDW Plt Count MPV Absolute Neuts (auto) Neutrophils % Neutrophils % (Manual) Band Neutrophils % Lymphocytes % Lymphocytes % (Manual) Monocytes % Monocytes % (Manual) Eosinophils % Eosinophils % (Manual) Basophils % Basophils % (Manual) Myelocytes % (Man) Promyelocytes % (Man) Blast Cells % (Manual) Nucleated RBC % Metamyelocytes Hypochromia Platelet Estimate Polychromasia Poikilocytosis Anisocytosis Microcytosis Macrocytosis Ovalocytes ESR Sodium Potassium Chloride Carbon Dioxide Anion Gap BUN Creatinine Creat Clearance w eGFR Random Glucose Calcium Phosphorus Magnesium Transferrin Total Bilirubin Direct Bilirubin AST ALT Alkaline Phosphatase LD Total 233 C-Reactive Protein Cancelled Total Protein Albumin CA 19-9 Antigen CA 125 Antigen Vitamin B12 283 Ur Random Sodium < 18 L Urine Creatinine 111.0 Influenza A (Rapid) Influenza B (Rapid) 07/27/18 07/27/18 07/27/18 06:00 06:00 06:00 WBC 13.5 H RBC 3.10 L Hgb 7.5 L Hct 23.5 L MCV 75.7 L MCH 24.3 L MCHC 32.1 RDW 18.9 H Plt Count 542 H MPV 7.5 Absolute Neuts (auto) 11.7 H Neutrophils % 86.6 H Neutrophils % (Manual) 84.0 H Band Neutrophils % 0.0 Lymphocytes % 8.5 D Lymphocytes % (Manual) 8.5 Monocytes % 4.5 Monocytes % (Manual) 8 Eosinophils % 0.2 Eosinophils % (Manual) 0.0 Basophils % 0.2 Basophils % (Manual) 0.0 Myelocytes % (Man) 0 Promyelocytes % (Man) 0 Blast Cells % (Manual) 0 Nucleated RBC % 0 Metamyelocytes 0 Hypochromia 1+ Platelet Estimate Increased Polychromasia 0 Poikilocytosis 1+ Anisocytosis 1+ Microcytosis 1+ Macrocytosis 0 Ovalocytes 1+ ESR 117 H Sodium 136 Potassium 3.0 L Chloride 106 Carbon Dioxide 18 L Anion Gap 12 BUN 51 H Creatinine 1.3 Creat Clearance w eGFR 41.50 Random Glucose 179 H Calcium 8.3 L Phosphorus 3.3 Magnesium 2.3 Transferrin Total Bilirubin 2.0 H Direct Bilirubin 1.6 H AST 28 ALT 13 Alkaline Phosphatase 134 H LD Total C-Reactive Protein 32.3 H Total Protein 5.9 L Albumin 2.0 L CA 19-9 Antigen CA 125 Antigen Vitamin B12 Ur Random Sodium Urine Creatinine Influenza A (Rapid) Influenza B (Rapid) 07/27/18 09:30 WBC RBC Hgb Hct MCV MCH MCHC RDW Plt Count MPV Absolute Neuts (auto) Neutrophils % Neutrophils % (Manual) Band Neutrophils % Lymphocytes % Lymphocytes % (Manual) Monocytes % Monocytes % (Manual) Eosinophils % Eosinophils % (Manual) Basophils % Basophils % (Manual) Myelocytes % (Man) Promyelocytes % (Man) Blast Cells % (Manual) Nucleated RBC % Metamyelocytes Hypochromia Platelet Estimate Polychromasia Poikilocytosis Anisocytosis Microcytosis Macrocytosis Ovalocytes ESR Sodium 136 Potassium 3.3 L Chloride 106 Carbon Dioxide 20 L Anion Gap 10 BUN 53 H Creatinine 1.3 Creat Clearance w eGFR 41.50 Random Glucose 163 H Calcium 8.3 L Phosphorus Magnesium Transferrin Total Bilirubin Direct Bilirubin AST ALT Alkaline Phosphatase LD Total C-Reactive Protein Total Protein Albumin CA 19-9 Antigen CA 125 Antigen Vitamin B12 Ur Random Sodium Urine Creatinine Influenza A (Rapid) Influenza B (Rapid) CT A/P, US Abdomen, Bladder US results reviewed noted ASSESSMENT AND PLAN: 63 yof with seizure disorder, vaginal bleed, admitted with abdominal pain, anorexia, found with pelvic mass suspicious for endometrial CA, CINTHYA,anemia, vaginal bleed. -Pelvic mass, suspicious for endometrial carcinoma -Vaginal bleeding, likely from above -Anemia, suspect multifactorial from chronic blood loss/suspected malignancy/ poor nutritional status/iron deficiency -CINTHYA, suspect from poor oral intake, improved -Dysphagia -Seizure disorder -fever x 1, ?etiology Plan: Discussed with [facility] Supervisor [facility] onc, patient accepted for transfer. ID consulted, Follow up blood cx. Repeat urine studies as indicated. Ceftriaxone , per ID. Discussed with Oncology, needs tissue diagnosis, and additional breast imaging. Speech/swallow input noted, clears as tolerated. IVF. Check CXR/Abdominal xray. PO as tolerated. Will need MBS and additional studies once active concerns improve. Neurology input noted. Hold carbamazepine for now. Keppra increased to 1 g BID. DVTPPX heparin with close monitoring of blood counts. D/c to [facility] when bed available. Plan discussed with patient and nursing, all questions answered. Care co- ordinated with ID, oncology and CM.
[2018-07-28 04:13] LABS: SERUM IRON SATURATION 37 % (15-55); TOTAL IRON BINDING CAPACITY 142 ug/dL (250-450); UIBC 89 ug/dL (118-369)
== END 2018-07-27 16:47 | disposition short-term general hospital (02) | DRG 755 ==
LOC: JER 18:46 → JERBED 23:36 → J5S 07-26 17:48 → J6S 07-26 19:25 → J5S 07-26 19:36
PROVIDERS: ADMIT Internal Medicine; ATTEND Hospitalist
DX: D39.0 Neoplasm of uncertain behavior of uterus (principal); N17.9 Acute kidney failure, unspecified; E87.1 Hypo-osmolality and hyponatremia; D62 Acute posthemorrhagic anemia; K80.00 Calculus of gallbladder with acute cholecystitis without obstruction; N39.0 Urinary tract infection, site not specified; D72.829 Elevated white blood cell count, unspecified; D50.9 Iron deficiency anemia, unspecified; Z68.39 Body mass index [BMI] 39.0-39.9, adult; N93.9 Abnormal uterine and vaginal bleeding, unspecified; E87.6 Hypokalemia; E66.9 Obesity, unspecified; R63.4 Abnormal weight loss; E86.0 Dehydration; K59.00 Constipation, unspecified; R13.10 Dysphagia, unspecified; E88.09 Other disorders of plasma-protein metabolism, not elsewhere classified; D47.3 Essential (hemorrhagic) thrombocythemia
CPT/HCPCS: 36415; 74176-TC; 76705-TC; 76856-TC; 80048; 80053; 80156; 80177; 81003; 82248; 82378; 82570; 82607; 82728; 82747; 82977; 83540; 83550; 83605; 83615; 83690; 83735; 83930; 84100; 84134; 84300; 84466; 85014; 85025; 85044; 85610; 85651; 86140; 86301; 86304; 87040; 87086; 87804; 93005; 93010; 99285-25; J0131; J1644; J7030